=== PATIENT | male | born 1970 | race Caucasian/White ===

== ENCOUNTER 2018-04-04 18:35 | Outpatient (REF) | payer BC, SELFPAY ==
--- NOTE | 2018-04-04 16:45 | SKI_PTH ---
PATIENT: Amos Nolan LOC: [facility] U#:[id number] AGE/SX: 47/M ROOM: RE04/04/[address]: Derrell Song : 1970 BED: DIS: 04/04/2018 SPEC #: [id number] RECD: 04/05/18 12:37 STATUS: MECCA RE #: [id number] MAURICE: 04/04/18 16:[address]: Derrell Song DEPT: Surgical Specimen RECD BY: Constanza Mehta Tissues: 1 - SKIN BIOPSY(SHAVE/PUNCH) Procedures: SKIN LEVEL 4 Comments: [id number]
== END 2018-04-04 18:55 ==
LOC: NCHCN 18:35
PROVIDERS: PCP Family Medicine; Visit Provider Family Medicine
DX: D18.01 Hemangioma of skin and subcutaneous tissue (principal)
CPT/HCPCS: 88305

== ENCOUNTER 2018-07-01 13:42 | Outpatient (REF) | payer BC, SELFPAY | END 2018-07-01 14:02 | LOC: NCHCN 13:42 | PROVIDERS: PCP Family Medicine; Visit Provider Registered Nurse | DX: J02.9 Acute pharyngitis, unspecified (principal) | CPT/HCPCS: 86060; 86215; 87081 ==

== ENCOUNTER 2019-01-22 16:58 | Outpatient (REF) | payer BC, SELFPAY | END 2019-01-22 17:18 | LOC: NCHCN 16:58 | PROVIDERS: PCP Family Medicine; Visit Provider Family Medicine | DX: E11.9 Type 2 diabetes mellitus without complications (principal) | CPT/HCPCS: 82043; 82570 ==

== ENCOUNTER 2019-01-24 09:21 | Outpatient (REF) | payer BC, SELFPAY ==
[2019-01-24 21:08] LABS: Abs Immature Grans 0.01 k/cumm (0.0-0.09); Absolute Basophil Count 0.03 k/cumm (0.0-0.2); Absolute Eosinophil Count 0.12 k/cumm (0.0-0.7); Absolute Lymphocyte Count 1.23 k/cumm (1.2-3.4); Absolute Monocyte Count 0.63 k/cumm (0.11-0.7); Absolute Neutrophil Count 3.56 k/cumm (1.2-6.7); Basophils % 0.5; Eosinophils % 2.2; HCT 42.4 % (40.0-50.0); HGB 14.3 g/dL (13.5-17.5); Immature Grans % 0.2; Mean Corp. HGB Concentration 33.7 g/dL (32.0-36.0); Mean Corpuscular Volume 89.1 fL (80-95); Mean Platelet Volume 11.4 fL (8.0-11.0); Monocytes % 11.3; Neutrophils % 63.8; Platelet Count 200 x1000/uL (130-400); RBC 4.76 m/cumm (4.50-6.00); RBC Distribution Width 13.8 % (11.8-14.1); White Blood Cell Count 5.58 k/cumm (4.4-10.8)
[2019-01-24 21:35] LABS: ALT 62 U/L (12-78); AST 29 U/L (15-37); Albumin 4.2 g/dL (3.4-5.0); Alkaline Phosphatase 89 U/L (46-116); Anion Gap 7.6 mmol/L (3-11); BUN 22 mg/dL (7-18); Bilirubin, Total 0.7 mg/dL (0.2-1.0); CO2 28.4 mmol/L (21.0-32.0); CREATININE 0.88 mg/dL (0.70-1.30); Calculated LDL 96 mg/dL; Chloride 105 mmol/L (98-107); Cholesterol 179 mg/dL (50-200); Glucose 147 mg/dL (70-100); HDL Cholesterol 49 mg/dL (40-60); Magnesium 1.9 mg/dL (1.8-2.4); Potassium 4.4 mmol/L (3.5-5.1); Sodium 141 mmol/L (136-145); TSH (W/Ref FT4) 2.11 uIU/mL (0.358-3.74); Total Protein 7.3 g/dL (6.4-8.2); Triglyceride 173 mg/dL (30-150)
[2019-01-24 21:59] LABS: COMMENT (LAB VIEW ONLY) 134.93 mg/dL; Microalb ug/mg Crea 12.7 ug/mg Cr
[2019-01-24 22:10] LABS: Creatine Kinase 130 U/L (39-308)
[2019-01-27 10:43] LABS: Hepatitis C Ab w Rflx HCV PCR Negative (NEGAT)
== END 2019-01-24 09:41 ==
LOC: NCHCN 09:21
PROVIDERS: PCP Family Medicine; Visit Provider Family Medicine
DX: E11.9 Type 2 diabetes mellitus without complications (principal); E78.1 Pure hyperglyceridemia; E78.5 Hyperlipidemia, unspecified; M79.10 Myalgia, unspecified site; K76.0 Fatty (change of) liver, not elsewhere classified; Z11.59 Encounter for screening for other viral diseases
CPT/HCPCS: 80053; 80061; 82550; 83721; 86803; 82043; 82570; 83735; 84443; 85025

== ENCOUNTER 2022-11-07 15:01 | Outpatient (REF) | payer BC, SELFPAY ==
[2022-11-07 20:56] LABS: COMMENT (LAB VIEW ONLY) 82.41 mg/dL; Microalb ug/mg Crea 49.4 ug/mg Cr
== END 2022-11-07 15:02 | disposition home or self-care (01) ==
LOC: NCHCN 15:01
PROVIDERS: PCP Family Medicine; Visit Provider Family Medicine
DX: E11.9 Type 2 diabetes mellitus without complications (principal)
CPT/HCPCS: 82043; 82570

== ENCOUNTER 2022-11-15 15:49 | Outpatient (REF) | payer BC, SELFPAY ==
[2022-11-15 16:42] LABS: Hemoglobin A1C 7.1 % (<5.7)
[2022-11-15 17:33] LABS: ALT 74 U/L (16-63); AST 29 U/L (15-37); Albumin 4.5 g/dL (3.4-5.0); Alkaline Phosphatase 81 U/L (46-116); Anion Gap 7.5 mmol/L (3-11); BUN 22 mg/dL (7-18); Bilirubin, Total 0.6 mg/dL (0.2-1.0); CO2 28.5 mmol/L (21.0-32.0); Calcium 9.3 mg/dL (8.5-10.1); Calculated LDL 205 mg/dL (<100); Chloride 104 mmol/L (98-107); Cholesterol 298 mg/dL (<200); Glucose 154 mg/dL (74-106); HDL Cholesterol 60 mg/dL (40-60); Potassium 4.4 mmol/L (3.5-5.1); Sodium 140 mmol/L (136-145); Triglyceride 167 mg/dL (<150)
[2022-11-16 21:12] LABS: PSA, Screening 0.2 ng/mL (<=3.5)
== END 2022-11-15 15:50 | disposition home or self-care (01) ==
LOC: NCHCN 15:49
PROVIDERS: PCP Family Medicine; Visit Provider Family Medicine
DX: E78.5 Hyperlipidemia, unspecified (principal); E11.9 Type 2 diabetes mellitus without complications; N18.9 Chronic kidney disease, unspecified; K76.0 Fatty (change of) liver, not elsewhere classified; R35.0 Frequency of micturition; Z12.5 Encounter for screening for malignant neoplasm of prostate
CPT/HCPCS: 80053; 80061; 84153; 83036

== ENCOUNTER 2023-07-10 15:41 | Outpatient (REF) | payer BC, SELFPAY ==
--- OUTSIDE RECORDS SUMMARY | 2023-07-10 15:44 | XMS_ITS | CCD ---
Author Name Unknown Address [address] [place] [address] [id number] Organization Unknown Address [address] [place] [address] [id number] Care Team Providers Care Lot Associate Name Role Phone BERTRAM PATEL Attending Physician [phone] BERTRAM PATEL Rounding (Secondary) Physici an [phone] Vital Signs Unknown or Not Available. Allergies Allergy Code Allergy Type Reaction Status No Known Allergies 0 No known allergies Active Procedures Unknown or Not Available. History of Immunizations Unknown or Not Available. Problems Problem Code Start Date Resolved Date Status Sprain of thoracic region 212190130 Active Diabetes 2 77408889 Active Results Unknown or Not Available. Active Medications Medication Code Dose Units Frequency Route Modificatio n Start Date/Time Fish Oil 1000MG Oral Capsule, Liquid Filled 32949491155 1000 MILLIGRAMS DAILY ORAL 14:22 Prescription Detail TAKE 1000 MILLIGRAMS ORAL DAILY Januvia 100MG Oral Tablet 337569 100 MILLIGRAMS DAILY ORAL 14:22 Prescription Detail TAKE 100 MILLIGRAMS ORAL DAILY Jardiance 10MG Oral Tablet 1296525 10 MILLIGRAMS DAILY ORAL 14:22 Prescription Detail TAKE 10 MILLIGRAMS ORAL DAILY Lisinopril 5MG Oral Tablet 789936 5 MILLIGRAMS DAILY ORAL 14:22 Prescription Detail TAKE 5 MILLIGRAMS ORAL DAILY Multi-Day Oral Tablet 59913943471 1 EACH DAILY ORAL 06/16/20 14:22 Prescription Detail TAKE 1 EACH ORAL DAILY Medications Administered During Visit Unknown or Not Available. Encounters Encounter Diagnosis Diagnosis Code Start Date Follow-up visit [id number] 06/28/2022 Social History Smoking Status Code Start Date End Date Never smoker [id number] Patient Decision Aids Unknown or Not Available. Discharge Instructions You were admitted to [facility] on 06/28/2022 09:30 with a principal diagnosis of Encounter for follow-up examination after completed treatment for conditions other than malignant neoplasm You were discharged from [facility] on 06/28/2022 00:00 Should you have any questions prior to discharge, please contact a member of your healthcare team. If you have left the hospital and have any questions, please contact your primary care physician. Chief Complaint and Reason For Visit Unknown or Not Available. Function Status Unknown or Not Available. Plan of Care Unknown or Not Available. Referral/Transition of Care Unknown or Not Available.
--- OUTSIDE RECORDS SUMMARY | 2023-07-10 15:44 | XMS_ITS | CCD ---
Author Name Unknown Address [address] [place] [address] [phone] Organization Unknown Address [address] [place] [address] [phone] Care Team Providers Care Vice Provost Name Role Phone BERTRAM PATEL Luz Attending Physician [phone] Vital Signs Unknown or Not Available. Allergies Allergy Code Allergy Type Reaction Status No Known Allergies 0 No known allergies Active Procedures Unknown or Not Available. History of Immunizations Unknown or Not Available. Problems Problem Code Start Date Resolved Date Status Sprain of thoracic region 714926796 Active Diabetes 2 49336188 Active Results Unknown or Not Available. Active Medications Medication Code Dose Units Frequency Route Modificatio n Start Date/Time Fish Oil 1000MG Oral Capsule, Liquid Filled 88202627663 1000 MILLIGRAMS DAILY ORAL 14:22 Prescription Detail TAKE 1000 MILLIGRAMS ORAL DAILY Januvia 100MG Oral Tablet 674569 100 MILLIGRAMS DAILY ORAL 14:22 Prescription Detail TAKE 100 MILLIGRAMS ORAL DAILY Jardiance 10MG Oral Tablet 3275661 10 MILLIGRAMS DAILY ORAL 14:22 Prescription Detail TAKE 10 MILLIGRAMS ORAL DAILY Lisinopril 5MG Oral Tablet 507489 5 MILLIGRAMS DAILY ORAL 14:22 Prescription Detail TAKE 5 MILLIGRAMS ORAL DAILY Multi-Day Oral Tablet 33284022743 1 EACH DAILY ORAL 06/16/20 14:22 Prescription Detail TAKE 1 EACH ORAL DAILY Medications Administered During Visit Unknown or Not Available. Encounters Encounter Diagnosis Diagnosis Code Start Date Acute appendicitis with perf oration, localized peritonitis, and gangrene, without abscess [id number] 06/09/2022 Social History Smoking Status Code Start Date End Date Never smoker 810820838 Patient Decision Aids Unknown or Not Available. Discharge Instructions You were admitted to [facility] on 06/09/2022 12:04 with a principal diagnosis of Acute appendicitis with perforation, localized peritonitis, and gangrene, without abscess You were discharged from [facility] on 06/16/2022 00:00 Should you have any questions prior [...]
--- OUTSIDE RECORDS SUMMARY | 2023-07-10 15:44 | XMS_ITS | CCD ---
Author Name Unknown Address [address] [place] [address] [id number] Organization Unknown Address [address] [place] [address] [phone] Care Team Providers Care Fermenting Cellars Supervisor Name Role Phone BRANDIE OWUSU Attending Physician [phone] Vital Signs Unknown or Not Available. Allergies Allergy Code Allergy Type Reaction Status No Known Allergies 0 No known allergies Active Procedures Unknown or Not Available. History of Immunizations Unknown or Not Available. Problems Problem Code Start Date Resolved Date Status Sprain of thoracic region 726243862 Active Diabetes 2 34746312 Active Results AMYLASE SERUM* - Collect Jose e/Time: 08/03/2022 08:54 Test Name Code Test Result Test Units Test Ref Rang e AMYLASE SERUM 1798-8 88 U/L L=25 H=125 COMPREHENSIVE METABOLIC PANE L (CMP) - Collect Date/Time: 08/03/2022 08:54 Test Name Code Test Result Test Units Test Ref Rang e GLUCOSE 2345-7 204 mg/dL L=70 H=116 BUN 3094-0 19 mg/dL L=6 H=25 CREATININE 2160-0 0.99 mg/dL L=0.67 H=1.17 SODIUM SERUM 2951-2 140 mmol/L L=136 H=145 POTASSIUM SERUM 2823-3 4.4 mmol/L L=3.4 H=5 .2 CHLORIDE SERUM 2075-0 103 mmol/L L=96 H=110 CARBON DIOXIDE (CO2) 2028-9 27 mmol/L L=22 H=34 ANION GAP 07031-3 10.1 mmol/L CALCIUM SERUM 99555-2 9.5 mg/dL L=8.2 H=10. 2 BILIRUBIN TOTAL 1975-2 0.5 mg/dL L=0.0 H=1 .3 ALK. PHOS. 6768-6 82 U/L L=46 H=116 SGOT (AST) 1920-8 29 U/L L=15 H=37 SGPT (ALT) 1742-6 71 U/L L=12 H=78 TOTAL PROTEIN 2885-2 8.2 gm/dL L=6.0 H=8.0 ALBUMIN 1751-7 4.3 gm/dL L=3.4 H=5.0 AGE 51 years eGFR (non-Afr.Amer.) 18164-2 79 mL/min eGFR (Afr-Ghanaian) 22826-4 96 mL/min HEMOGLOBIN A1C* - Collect Da te/Time: 08/03/2022 08:54 Test Name Code Test Result Test Units Test Ref Rang e Hgb A1c 4548-4 6.6 % L=3.8 H=5.7 MEAN BLOOD GLUCOSE 85234-8 134 mg/dL LIPASE* NEW - Collect Date/T herman: 08/03/2022 08:54 Test Name Code Test Result Test Units Test Ref Rang e LIPASE. 96 U/L L=16 H=77 CBC W/ DIFFERENTIAL* - Colle ct Date/Time: 08/03/2022 08:54 Test Name Code Test Result Test Units Test Ref Rang e WBC 6690-2 5.60 th/cmm L=5.00 H=10.00 NEUT % 59.2 % L=40.0 H=80.0 LYMPH % 27.5 % L=10.0 H=50.0 MONO % 58984-0 9.1 % L=2.0 H=12.0 EOS % 2.9 % L=0.0 H=8.0 BASO % 0.9 % L=0.0 H=3.0 IG % 2514-8 0.4 % L=0.0 H=1.1 NRBC % 73131-9 0.0 % L=0.0 H=0.0 NEUT abs count 751-8 3.3 th/cmm L=1.6 H=8. 4 LYMPH abs count 731-0 1.5 th/cmm L=1.5 H=4 .0 MONO abs count 742-7 0.5 th/cmm L=0.2 H=1. 0 EOS abs count 711-2 0.2 th/cmm L=0.0 H=0.5 BASO abs count 704-7 0.1 th/cmm L=0.0 H=0. 2 IG abs count 24906-5 0.0 th/cmm L=0.0 H=0.1 NRBC abs count 70575-3 0.0 mil/cmm L=0.0 H=0. 0 RBC 789-8 5.01 mil/cmm L=4.30 H=6.20 HEMOGLOBIN 718-7 15.2 gm/dL L=13.0 H=17.0 HEMATOCRIT 4544-3 46 % L=45 H=52 MCV 787-2 92 fL L=82 H=92 MCH 785-6 30.3 pg L=27.0 H=31.0 MCHC 786-4 33.0 % L=32.0 H=36.0 RDW-SD 788-0 45.6 fL L=39.0 H=49.0 PLATELET COUNT 777-3 213 th/cmm L=150 H=45 0 Active Medications Medication Code Dose Units Frequency Route Modificatio n Start Date/Time Fish Oil 1000MG Oral Capsule, Liquid Filled 50653730972 1000 MILLIGRAMS DAILY ORAL 14:22 Prescription Detail TAKE 1000 MILLIGRAMS ORAL DAILY Januvia 100MG Oral Tablet 910211 100 MILLIGRAMS DAILY ORAL 14:22 Prescription Detail TAKE 100 MILLIGRAMS ORAL DAILY Jardiance 10MG Oral Tablet 2963618 10 MILLIGRAMS DAILY ORAL 14:22 Prescription Detail TAKE 10 MILLIGRAMS ORAL DAILY Lisinopril 5MG Oral Tablet 244263 5 MILLIGRAMS DAILY ORAL 14:22 Prescription Detail TAKE 5 MILLIGRAMS ORAL DAILY Multi-Day Oral Tablet 60437804754 1 EACH DAILY ORAL 06/16/20 14:22 Prescription Detail TAKE 1 EACH ORAL DAILY Medications Administered During Visit Unknown or Not Available. Encounters Encounter Diagnosis Diagnosis Code Start Date Acute pancreatitis 248452328 08/03/2022 Social History Smoking Status Code Start Date End Date Never smoker 205920487 Patient Decision Aids Unknown or Not Available. Discharge Instructions You were admitted to [facility] on 08/03/2022 08:47 with a principal diagnosis of Acute pancreatitis without necrosis or infection, unspecified You had the following tests done:AMYLASE SERUM*CBC W/ DIFFERENTIAL*COMPREHENSIVE METABOLIC PANEL (CMP)HEMOGLOBIN A1C*LIPASE* NEW You were discharged from [facility] on 08/03/2022 08:47 Should you have any questions prior to [...]
--- OUTSIDE RECORDS SUMMARY | 2023-07-10 15:45 | XMS_ITS | CCD ---
Author Name Unknown Address [address] [place] [address] [phone] Organization Unknown Address [address] [place] [address] [phone] Care Team Providers Care Literacy Coordinator Name Role Phone MINH ROACH Attending Physician [phone] Vital Signs Unknown or Not Available. Allergies Allergy Code Allergy Type Reaction Status No Known Allergies 0 No known allergies Active Procedures Unknown or Not Available. History of Immunizations Unknown or Not Available. Problems Problem Code Start Date Resolved Date Status Sprain of thoracic region 229269095 Active Diabetes 2 21278020 Active Results JOHN COVID RHEONIX* - Anatoly ect Date/Time: 12/28/2021 09:53 Test Name Code Test Result Test Units Test Ref Rang e Tier- 38332-3 PRE-OP N/A SARS COV2 RNA: 46610-1 NEGATIVE N/A REFERENCE RANGE: NEGAT Active Medications Medication Code Dose Units Frequency Route Modificatio n Start Date/Time Fish Oil 1000MG Oral Capsule, Liquid Filled 49902949701 1000 MILLIGRAMS DAILY ORAL 14:22 Prescription Detail TAKE 1000 MILLIGRAMS ORAL DAILY Januvia 100MG Oral Tablet 656157 100 MILLIGRAMS DAILY ORAL 022 14:22 Prescription Detail TAKE 100 MILLIGRAMS ORAL DAILY Jardiance 10MG Oral Tablet 7215021 10 MILLIGRAMS DAILY ORAL 14:22 Prescription Detail TAKE 10 MILLIGRAMS ORAL DAILY Lisinopril 5MG Oral Tablet 017399 5 MILLIGRAMS DAILY ORAL 14:22 Prescription Detail TAKE 5 MILLIGRAMS ORAL DAILY Multi-Day Oral Tablet 98813962796 1 EACH DAILY ORAL 06/16/20 14:22 Prescription Detail TAKE 1 EACH ORAL DAILY Medications Administered During Visit Unknown or Not Available. Encounters Encounter Diagnosis Diagnosis Code Start Date Pre-surgery testing 459227990 12/28/2021 Social History Smoking Status Code Start Date End Date Never smoker 496294846 Patient Decision Aids Unknown or Not Available. Discharge Instructions You were admitted to [facility] on 12/28/2021 15:56 with a principal diagnosis of Encounter for preprocedural laboratory examination You had the following tests done:JOHNYIMI BANKSX* You were discharged from [facility] on 12/28/2021 15:56 Should you have any questions prior to [...]
--- OUTSIDE RECORDS SUMMARY | 2023-07-10 15:45 | XMS_ITS | CCD ---
Author Name Unknown Address [address] [place] [address] [phone] Organization Unknown Address [address] [place] [address] [phone] Care Team Providers Care Pest Control Service Representative Name Role Phone MINH ROACH Attending Physician [phone] Vital Signs Unknown or Not Available. Allergies Allergy Code Allergy Type Reaction Status No Known Allergies 0 No known allergies Active Procedures Unknown or Not Available. History of Immunizations Unknown or Not Available. Problems Problem Code Start Date Resolved Date Status Sprain of thoracic region 364615140 Active Diabetes 2 71580710 Active Results JOHN COVID RHEONIX* - Anatoly ect Date/Time: 05/03/2022 09:44 Test Name Code Test Result Test Units Test Ref Rang e Tier- 73688-1 PRE-OP N/A SARS COV2 RNA: 93480-0 NEGATIVE N/A REFERENCE RANGE: NEGAT Active Medications Medication Code Dose Units Frequency Route Modificatio n Start Date/Time Fish Oil 1000MG Oral Capsule, Liquid Filled 87587066176 1000 MILLIGRAMS DAILY ORAL 14:22 Prescription Detail TAKE 1000 MILLIGRAMS ORAL DAILY Januvia 100MG Oral Tablet 568292 100 MILLIGRAMS DAILY ORAL 022 14:22 Prescription Detail TAKE 100 MILLIGRAMS ORAL DAILY Jardiance 10MG Oral Tablet 0690429 10 MILLIGRAMS DAILY ORAL 14:22 Prescription Detail TAKE 10 MILLIGRAMS ORAL DAILY Lisinopril 5MG Oral Tablet 895292 5 MILLIGRAMS DAILY ORAL 14:22 Prescription Detail TAKE 5 MILLIGRAMS ORAL DAILY Multi-Day Oral Tablet 98820583720 1 EACH DAILY ORAL 06/16/20 14:22 Prescription Detail TAKE 1 EACH ORAL DAILY Medications Administered During Visit Unknown or Not Available. Encounters Encounter Diagnosis Diagnosis Code Start Date Pre-surgery testing 670505095 05/03/2022 Social History Smoking Status Code Start Date End Date Never smoker 164389198 Patient Decision Aids Unknown or Not Available. Discharge Instructions You were admitted to [facility] on 05/03/2022 07:44 with a principal diagnosis of Encounter for preprocedural laboratory examination You had the following tests done:JOHNYIMI SALES* You were discharged from [facility] on 05/03/2022 07:44 Should you have any questions prior to [...]
--- OUTSIDE RECORDS SUMMARY | 2023-07-10 15:45 | XMS_ITS | CCD ---
Author Name Unknown Address [address] [place] [address] [phone] Organization Unknown Address [address] [place] [address] [phone] Care Team Providers Care Stone Gang Sawyer Name Role Phone MILKA TAPIA Attending Physician [phone] SERGIO CUI Er Physician [phone] SERGIO CUI Roundmartha (Secondary) Physician [phone] BERRY Monreal Registered Nurse [phone] ARIEL Wilcox Registered Nurse [phone] Vital Signs Vital Sign Value Unit Date/Time Recent/Initial ? BMI (Body Mass Index) 29.7 kg/m^2 06/08/2022 16: 56 Initial VS Weight Measured 207 lbs 06/08/2022 16:56 Ini tial VS Height 70 in 06/08/2022 16:56 Initial VS BSA (Body Surface Area) 2.15 m^2 06/08/2022 1 6:56 Initial VS BP Systolic 144 mmHg 06/08/2022 16:56 Initial VS BP Diastolic 90 mmHg 06/08/2022 16:56 Initia l VS Respiratory Rate 16 bpm 06/08/2022 16:56 In itial VS Heart Rate 70 bpm 06/08/2022 16:56 Initial VS O2 % BldC Oximetry 97 % 06/08/2022 16:56 Initial VS Body Temperature 37.2 degrees 06/08/2022 16:56 In itial VS BMI (Body Mass Index) 29.84 kg/m^2 06/14/2022 16: 22 Most Recent VS Weight Measured 208 lbs 06/14/2022 16:22 Mos t Recent VS Height 70 in 06/14/2022 16:22 Most Rec ent VS BSA (Body Surface Area) 2.16 m^2 06/14/2022 1 6:22 Most Recent VS BP Systolic 132 mmHg 06/16/2022 07:40 Most Re cent VS BP Diastolic 74 mmHg 06/16/2022 07:40 Most R ecent VS Respiratory Rate 19 bpm 06/16/2022 07:[address] Recent VS Heart Rate 49 bpm 06/16/2022 07:40 Most Rec ent VS O2 % BldC Oximetry 98 % 06/16/2022 07:40 Most Recent VS Body Temperature 36.9 degrees 06/16/2022 07:[address] Recent VS Allergies Allergy Code Allergy Type Reaction Status No Known Allergies 0 No known allergies Active Procedures Procedure Code Procedure Type Date Resection of Appendix, Percu taneous Endoscopic Approach [id number] ICD-10 PCS 06/12/2022 Anesthesia, Intraperitoneal Proc, Lower Abdomen, w/Laparoscopy; NOS 92521 CPT 06/12/2022 History of Immunizations Unknown or Not Available. Problems Problem Code Start Date Resolved Date Status Sprain of thoracic region [id number] Active Diabetes 2 [id number] Active Results BASIC METABOLIC PANEL (BMP) - Collect Date/Time: 06/15/2022 07:02 Test Name Code Test Result Test Units Test Ref Rang e GLUCOSE 2345-7 162 mg/dL L=70 H=116 BUN 3094-0 13 mg/dL L=6 H=25 CREATININE 2160-0 0.78 mg/dL L=0.67 H=1.17 SODIUM SERUM 2951-2 140 mmol/L L=136 H=145 POTASSIUM SERUM 2823-3 3.9 mmol/L L=3.4 H=5 .2 CHLORIDE SERUM 2075-0 104 mmol/L L=96 H=110 CARBON DIOXIDE (CO2) 2028-9 28 mmol/L L=22 H=34 ANION GAP 56434-7 8.3 mmol/L CALCIUM SERUM 17028-0 8.3 mg/dL L=8.2 H=10. 2 AGE 51 years eGFR (non-Afr.Amer.) 34672-6 104 mL/min eGFR (Afr-Yemeni) 77144-7 >120 mL/min BASIC METABOLIC PANEL (BMP) - Collect Date/Time: 06/13/2022 06:36 Test Name Code Test Result Test Units Test Ref Rang e GLUCOSE 2345-7 168 mg/dL L=70 H=116 BUN 3094-0 16 mg/dL L=6 H=25 CREATININE 2160-0 0.85 mg/dL L=0.67 H=1.17 SODIUM SERUM 2951-2 138 mmol/L L=136 H=145 POTASSIUM SERUM 2823-3 4.0 mmol/L L=3.4 H=5 .2 CHLORIDE SERUM 2075-0 101 mmol/L L=96 H=110 CARBON DIOXIDE (CO2) 2028-9 31 mmol/L L=22 H=34 ANION GAP 89972-0 6.5 mmol/L CALCIUM SERUM 79999-4 8.3 mg/dL L=8.2 H=10. 2 AGE 51 years eGFR (non-Afr.Amer.) 22491-9 94 mL/min eGFR (Afr-Yemeni) 28712-4 114 mL/min BASIC METABOLIC PANEL (BMP) - Collect Date/Time: 06/12/2022 06:25 Test Name Code Test Result Test Units Test Ref Rang e GLUCOSE 2345-7 158 mg/dL L=70 H=116 BUN 3094-0 17 mg/dL L=6 H=25 CREATININE 2160-0 0.82 mg/dL L=0.67 H=1.17 SODIUM SERUM 2951-2 138 mmol/L L=136 H=145 POTASSIUM SERUM 2823-3 3.7 mmol/L L=3.4 H=5 .2 CHLORIDE SERUM 2075-0 103 mmol/L L=96 H=110 CARBON DIOXIDE (CO2) 2028-9 27 mmol/L L=22 H=34 ANION GAP 37139-3 8.3 mmol/L CALCIUM SERUM 98453-4 8.3 mg/dL L=8.2 H=10. 2 AGE 51 years eGFR (non-Afr.Amer.) 79352-7 98 mL/min eGFR (Afr-Y[place]i) 88474-4 119 mL/min BASIC METABOLIC PANEL (BMP) - Collect Date/Time: 06/10/2022 06:25 Test Name Code Test Result Test Units Test Ref Rang e GLUCOSE 2345-7 144 mg/dL L=70 H=116 BUN 3094-0 16 mg/dL L=6 H=25 CREATININE 2160-0 0.81 mg/dL L=0.67 H=1.17 SODIUM SERUM 2951-2 131 mmol/L L=136 H=145 POTASSIUM SERUM 2823-3 3.6 mmol/L L=3.4 H=5 .2 CHLORIDE SERUM 2075-0 99 mmol/L L=96 H=110 CARBON DIOXIDE (CO2) 2028-9 26 mmol/L L=22 H=34 ANION GAP 01991-0 5.8 mmol/L CALCIUM SERUM 56721-6 8.1 mg/dL L=8.2 H=10. 2 AGE 51 years eGFR (non-Afr.Amer.) 91600-6 100 mL/min eGFR (Afr-[place]i) 62529-4 >120 mL/min BASIC METABOLIC PANEL (BMP) - Collect Date/Time: 06/09/2022 06:11 Test Name Code Test Result Test Units Test Ref Rang e GLUCOSE 2345-7 173 mg/dL L=70 H=116 BUN 3094-0 15 mg/dL L=6 H=25 CREATININE 2160-0 0.96 mg/dL L=0.67 H=1.17 SODIUM SERUM 2951-2 133 mmol/L L=136 H=145 POTASSIUM SERUM 2823-3 3.8 mmol/L L=3.4 H=5 .2 CHLORIDE SERUM 2075-0 98 mmol/L L=96 H=110 CARBON DIOXIDE (CO2) 2028-9 28 mmol/L L=22 H=34 ANION GAP 64231-6 7.1 mmol/L CALCIUM SERUM 79687-6 8.2 mg/dL L=8.2 H=10. 2 AGE 51 years eGFR (non-Afr.Amer.) 61799-3 82 mL/min eGFR (Afr-Y[place]i) 35071-1 99 mL/min COMPREHENSIVE METABOLIC PANE L (CMP) - Collect Date/Time: 06/08/2022 17:33 Test Name Code Test Result Test Units Test Ref Rang e GLUCOSE 2345-7 122 mg/dL L=70 H=116 BUN 3094-0 19 mg/dL L=6 H=25 CREATININE 2160-0 1.04 mg/dL L=0.67 H=1.17 SODIUM SERUM 2951-2 134 mmol/L L=136 H=145 POTASSIUM SERUM 2823-3 3.8 mmol/L L=3.4 H=5 .2 CHLORIDE SERUM 2075-0 98 mmol/L L=96 H=110 CARBON DIOXIDE (CO2) 2028-9 29 mmol/L L=22 H=34 ANION GAP 83855-2 6.7 mmol/L CALCIUM SERUM 05665-1 9.0 mg/dL L=8.2 H=10. 2 BILIRUBIN TOTAL 1975-2 0.6 mg/dL L=0.0 H=1 .3 ALK. PHOS. 6768-6 73 U/L L=46 H=116 SGOT (AST) 1920-8 32 U/L L=15 H=37 SGPT (ALT) 1742-6 71 U/L L=12 H=78 TOTAL PROTEIN 2885-2 7.7 gm/dL L=6.0 H=8.0 ALBUMIN 1751-7 4.4 gm/dL L=3.4 H=5.0 AGE 51 years eGFR (non-Afr.Amer.) 70986-0 75 mL/min eGFR (Afr-Y[place]i) 50589-2 90 mL/min GLUCOSE FINGER/HEEL CAPILLAR Y - Collect Date/Time: 06/16/2022 07:49 Test Name Code Test Result Test Units Test Ref Rang e GLUCOSE CAP 142 mg/dL L=70 H=116 GLUCOSE FINGER/HEEL CAPILLAR Y - Collect Date/Time: 06/15/2022 20:24 Test Name Code Test Result Test Units Test Ref Rang e GLUCOSE CAP 159 mg/dL L=70 H=116 GLUCOSE FINGER/HEEL CAPILLAR Y - Collect Date/Time: 06/15/2022 16:57 Test Name Code Test Result Test Units Test Ref Rang e GLUCOSE CAP 147 mg/dL L=70 H=116 GLUCOSE FINGER/HEEL CAPILLAR Y - Collect Date/Time: 06/15/2022 11:34 Test Name Code Test Result Test Units Test Ref Rang e GLUCOSE CAP 153 mg/dL L=70 H=116 GLUCOSE FINGER/HEEL CAPILLAR Y - Collect Date/Time: 06/15/2022 07:42 Test Name Code Test Result Test Units Test Ref Rang e GLUCOSE CAP 168 mg/dL L=70 H=116 GLUCOSE FINGER/HEEL CAPILLAR Y - Collect Date/Time: 06/14/2022 20:44 Test Name Code Test Result Test Units Test Ref Rang e GLUCOSE CAP 152 mg/dL L=70 H=116 GLUCOSE FINGER/HEEL CAPILLAR Y - Collect Date/Time: 06/14/2022 16:32 Test Name Code Test Result Test Units Test Ref Rang e GLUCOSE CAP 144 mg/dL L=70 H=116 GLUCOSE FINGER/HEEL CAPILLAR Y - Collect Date/Time: 06/14/2022 11:48 Test Name Code Test Result Test Units Test Ref Rang e GLUCOSE CAP 154 mg/dL L=70 H=116 GLUCOSE FINGER/HEEL CAPILLAR Y - Collect Date/Time: 06/14/2022 07:49 Test Name Code Test Result Test Units Test Ref Rang e GLUCOSE CAP 175 mg/dL L=70 H=116 GLUCOSE FINGER/HEEL CAPILLAR Y - Collect Date/Time: 06/13/2022 20:56 Test Name Code Test Result Test Units Test Ref Rang e GLUCOSE CAP 156 mg/dL L=70 H=116 GLUCOSE FINGER/HEEL CAPILLAR Y - Collect Date/Time: 06/13/2022 16:48 Test Name Code Test Result Test Units Test Ref Rang e GLUCOSE CAP 130 mg/dL L=70 H=116 GLUCOSE FINGER/HEEL CAPILLAR Y - Collect Date/Time: 06/13/2022 12:01 Test Name Code Test Result Test Units Test Ref Rang e GLUCOSE CAP 151 mg/dL L=70 H=116 GLUCOSE FINGER/HEEL CAPILLAR Y - Collect Date/Time: 06/13/2022 08:13 Test Name Code Test Result Test Units Test Ref Rang e GLUCOSE CAP 161 mg/dL L=70 H=116 GLUCOSE FINGER/HEEL CAPILLAR Y - Collect Date/Time: 06/12/2022 20:35 Test Name Code Test Result Test Units Test Ref Rang e GLUCOSE CAP 163 mg/dL L=70 H=116 GLUCOSE FINGER/HEEL CAPILLAR Y - Collect Date/Time: 06/12/2022 16:48 Test Name Code Test Result Test Units Test Ref Rang e GLUCOSE CAP 155 mg/dL L=70 H=116 GLUCOSE FINGER/HEEL CAPILLAR Y - Collect Date/Time: 06/12/2022 15:25 Test Name Code Test Result Test Units Test Ref Rang e GLUCOSE CAP 164 mg/dL L=70 H=116 GLUCOSE FINGER/HEEL CAPILLAR Y - Collect Date/Time: 06/12/2022 11:45 Test Name Code Test Result Test Units Test Ref Rang e GLUCOSE CAP 284 mg/dL L=70 H=116 GLUCOSE FINGER/HEEL CAPILLAR Y - Collect Date/Time: 06/12/2022 07:52 Test Name Code Test Result Test Units Test Ref Rang e GLUCOSE CAP 162 mg/dL L=70 H=116 GLUCOSE FINGER/HEEL CAPILLAR Y - Collect Date/Time: 06/11/2022 20:53 Test Name Code Test Result Test Units Test Ref Rang e GLUCOSE CAP 145 mg/dL L=70 H=116 GLUCOSE FINGER/HEEL CAPILLAR Y - Collect Date/Time: 06/11/2022 16:51 Test Name Code Test Result Test Units Test Ref Rang e GLUCOSE CAP 144 mg/dL L=70 H=116 GLUCOSE FINGER/HEEL CAPILLAR Y - Collect Date/Time: 06/11/2022 11:49 Test Name Code Test Result Test Units Test Ref Rang e GLUCOSE CAP 153 mg/dL L=70 H=116 GLUCOSE FINGER/HEEL CAPILLAR Y - Collect Date/Time: 06/11/2022 07:23 Test Name Code Test Result Test Units Test Ref Rang e GLUCOSE CAP 140 mg/dL L=70 H=116 GLUCOSE FINGER/HEEL CAPILLAR Y - Collect Date/Time: 06/10/2022 20:26 Test Name Code Test Result Test Units Test Ref Rang e GLUCOSE CAP 147 mg/dL L=70 H=116 GLUCOSE FINGER/HEEL CAPILLAR Y - Collect Date/Time: 06/10/2022 16:32 Test Name Code Test Result Test Units Test Ref Rang e GLUCOSE CAP 182 mg/dL L=70 H=116 GLUCOSE FINGER/HEEL CAPILLAR Y - Collect Date/Time: 06/10/2022 11:29 Test Name Code Test Result Test Units Test Ref Rang e GLUCOSE CAP 146 mg/dL L=70 H=116 GLUCOSE FINGER/HEEL CAPILLAR Y - Collect Date/Time: 06/10/2022 07:50 Test Name Code Test Result Test Units Test Ref Rang e GLUCOSE CAP 143 mg/dL L=70 H=116 GLUCOSE FINGER/HEEL CAPILLAR Y - Collect Date/Time: 06/09/2022 20:53 Test Name Code Test Result Test Units Test Ref Rang e GLUCOSE CAP 198 mg/dL L=70 H=116 GLUCOSE FINGER/HEEL CAPILLAR Y - Collect Date/Time: 06/09/2022 16:13 Test Name Code Test Result Test Units Test Ref Rang e GLUCOSE CAP 187 mg/dL L=70 H=116 GLUCOSE FINGER/HEEL CAPILLAR Y - Collect Date/Time: 06/09/2022 09:58 Test Name Code Test Result Test Units Test Ref Rang e GLUCOSE CAP 161 mg/dL L=70 H=116 GLUCOSE FINGER/HEEL CAPILLAR Y - Collect Date/Time: 06/09/2022 07:48 Test Name Code Test Result Test Units Test Ref Rang e GLUCOSE CAP 147 mg/dL L=70 H=116 GLUCOSE FINGER/HEEL CAPILLAR Y - Collect Date/Time: 06/09/2022 06:35 Test Name Code Test Result Test Units Test Ref Rang e GLUCOSE CAP 174 mg/dL L=70 H=116 LIPASE* NEW - Collect Date/T herman: 06/08/2022 17:33 Test Name Code Test Result Test Units Test Ref Rang e LIPASE. 199 U/L L=16 H=77 CBC W/ DIFFERENTIAL* - Colle ct Date/Time: 06/16/2022 06:39 Test Name Code Test Result Test Units Test Ref Rang e WBC 6690-2 10.33 th/cmm L=5.00 H=10.00 NEUT % 68.0 % L=40.0 H=80.0 LYMPH % 16.3 % L=10.0 H=50.0 MONO % 55540-1 10.2 % L=2.0 H=12.0 EOS % 0.7 % L=0.0 H=8.0 BASO % 1.0 % L=0.0 H=3.0 IG % 2514-8 3.8 % L=0.0 H=1.1 NRBC % 76295-9 0.0 % L=0.0 H=0.0 NEUT abs count 751-8 7.0 th/cmm L=1.6 H=8. 4 LYMPH abs count 731-0 1.7 th/cmm L=1.5 H=4 .0 MONO abs count 742-7 1.1 th/cmm L=0.2 H=1. 0 EOS abs count 711-2 0.1 th/cmm L=0.0 H=0.5 BASO abs count 704-7 0.1 th/cmm L=0.0 H=0. 2 IG abs count 42663-6 0.4 th/cmm L=0.0 H=0.1 NRBC abs count 91642-2 0.0 mil/cmm L=0.0 H=0. 0 RBC 789-8 4.51 mil/cmm L=4.30 H=6.20 HEMOGLOBIN 718-7 13.5 gm/dL L=13.0 H=17.0 HEMATOCRIT 4544-3 41 % L=45 H=52 MCV 787-2 90 fL L=82 H=92 MCH 785-6 29.9 pg L=27.0 H=31.0 MCHC 786-4 33.3 % L=32.0 H=36.0 RDW-SD 788-0 44.5 fL L=39.0 H=49.0 PLATELET COUNT 777-3 307 th/cmm L=150 H=45 0 CBC W/ DIFFERENTIAL* - Colle ct Date/Time: 06/15/2022 07:02 Test Name Code Test Result Test Units Test Ref Rang e WBC 6690-2 10.59 th/cmm L=5.00 H=10.00 NEUT % 73.4 % L=40.0 H=80.0 LYMPH % 13.6 % L=10.0 H=50.0 MONO % 78124-2 9.4 % L=2.0 H=12.0 EOS % 0.9 % L=0.0 H=8.0 BASO % 0.8 % L=0.0 H=3.0 IG % 2514-8 1.9 % L=0.0 H=1.1 NRBC % 14238-6 0.0 % L=0.0 H=0.0 NEUT abs count 751-8 7.8 th/cmm L=1.6 H=8. 4 LYMPH abs count 731-0 1.4 th/cmm L=1.5 H=4 .0 MONO abs count 742-7 1.0 th/cmm L=0.2 H=1. 0 EOS abs count 711-2 0.1 th/cmm L=0.0 H=0.5 BASO abs count 704-7 0.1 th/cmm L=0.0 H=0. 2 IG abs count 57757-6 0.2 th/cmm L=0.0 H=0.1 NRBC abs count 93529-3 0.0 mil/cmm L=0.0 H=0. 0 RBC 789-8 4.35 mil/cmm L=4.30 H=6.20 HEMOGLOBIN 718-7 12.8 gm/dL L=13.0 H=17.0 HEMATOCRIT 4544-3 39 % L=45 H=52 MCV 787-2 90 fL L=82 H=92 MCH 785-6 29.4 pg L=27.0 H=31.0 MCHC 786-4 32.6 % L=32.0 H=36.0 RDW-SD 788-0 44.2 fL L=39.0 H=49.0 PLATELET COUNT 777-3 278 th/cmm L=150 H=45 0 CBC W/ DIFFERENTIAL* - Colle ct Date/Time: 06/14/2022 07:35 Test Name Code Test Result Test Units Test Ref Rang e WBC 6690-2 12.94 th/cmm L=5.00 H=10.00 NEUT % 81.4 % L=40.0 H=80.0 LYMPH % 7.9 % L=10.0 H=50.0 MONO % 88804-3 7.5 % L=2.0 H=12.0 EOS % 0.6 % L=0.0 H=8.0 BASO % 0.7 % L=0.0 H=3.0 IG % 2514-8 1.9 % L=0.0 H=1.1 NRBC % 56376-0 0.0 % L=0.0 H=0.0 NEUT abs count 751-8 10.5 th/cmm L=1.6 H=8. 4 LYMPH abs count 731-0 1.0 th/cmm L=1.5 H=4 .0 MONO abs count 742-7 1.0 th/cmm L=0.2 H=1. 0 EOS abs count 711-2 0.1 th/cmm L=0.0 H=0.5 BASO abs count 704-7 0.1 th/cmm L=0.0 H=0. 2 IG abs count 93033-7 0.3 th/cmm L=0.0 H=0.1 NRBC abs count 97011-9 0.0 mil/cmm L=0.0 H=0. 0 RBC 789-8 4.65 mil/cmm L=4.30 H=6.20 HEMOGLOBIN 718-7 14.0 gm/dL L=13.0 H=17.0 HEMATOCRIT 4544-3 42 % L=45 H=52 MCV 787-2 90 fL L=82 H=92 MCH 785-6 30.1 pg L=27.0 H=31.0 MCHC 786-4 33.3 % L=32.0 H=36.0 RDW-SD 788-0 44.9 fL L=39.0 H=49.0 PLATELET COUNT 777-3 276 th/cmm L=150 H=45 0 CBC W/ DIFFERENTIAL* - Colle ct Date/Time: 06/13/2022 06:36 Test Name Code Test Result Test Units Test Ref Rang e WBC 6690-2 11.33 th/cmm L=5.00 H=10.00 NEUT % 75.2 % L=40.0 H=80.0 LYMPH % 11.3 % L=10.0 H=50.0 MONO % 25529-6 10.3 % L=2.0 H=12.0 EOS % 1.3 % L=0.0 H=8.0 BASO % 0.5 % L=0.0 H=3.0 IG % 2514-8 1.4 % L=0.0 H=1.1 NRBC % 19459-4 0.0 % L=0.0 H=0.0 NEUT abs count 751-8 8.5 th/cmm L=1.6 H=8. 4 LYMPH abs count 731-0 1.3 th/cmm L=1.5 H=4 .0 MONO abs count 742-7 1.2 th/cmm L=0.2 H=1. 0 EOS abs count 711-2 0.2 th/cmm L=0.0 H=0.5 BASO abs count 704-7 0.1 th/cmm L=0.0 H=0. 2 IG abs count 61060-7 0.2 th/cmm L=0.0 H=0.1 NRBC abs count 07988-1 0.0 mil/cmm L=0.0 H=0. 0 RBC 789-8 4.59 mil/cmm L=4.30 H=6.20 HEMOGLOBIN 718-7 13.6 gm/dL L=13.0 H=17.0 HEMATOCRIT 4544-3 42 % L=45 H=52 MCV 787-2 91 fL L=82 H=92 MCH 785-6 29.6 pg L=27.0 H=31.0 MCHC 786-4 32.5 % L=32.0 H=36.0 RDW-SD 788-0 45.8 fL L=39.0 H=49.0 PLATELET COUNT 777-3 253 th/cmm L=150 H=45 0 CBC W/ DIFFERENTIAL* - Colle ct Date/Time: 06/12/2022 06:25 Test Name Code Test Result Test Units Test Ref Rang e WBC 6690-2 12.57 th/cmm L=5.00 H=10.00 NEUT % 80.3 % L=40.0 H=80.0 LYMPH % 6.8 % L=10.0 H=50.0 MONO % 23233-5 10.4 % L=2.0 H=12.0 EOS % 0.9 % L=0.0 H=8.0 BASO % 0.4 % L=0.0 H=3.0 IG % 2514-8 1.2 % L=0.0 H=1.1 NRBC % 98505-7 0.0 % L=0.0 H=0.0 NEUT abs count 751-8 10.1 th/cmm L=1.6 H=8. 4 LYMPH abs count 731-0 0.9 th/cmm L=1.5 H=4 .0 MONO abs count 742-7 1.3 th/cmm L=0.2 H=1. 0 EOS abs count 711-2 0.1 th/cmm L=0.0 H=0.5 BASO abs count 704-7 0.1 th/cmm L=0.0 H=0. 2 IG abs count 43516-2 0.2 th/cmm L=0.0 H=0.1 NRBC abs count 98622-3 0.0 mil/cmm L=0.0 H=0. 0 RBC 789-8 4.51 mil/cmm L=4.30 H=6.20 HEMOGLOBIN 718-7 13.6 gm/dL L=13.0 H=17.0 HEMATOCRIT 4544-3 41 % L=45 H=52 MCV 787-2 91 fL L=82 H=92 MCH 785-6 30.2 pg L=27.0 H=31.0 MCHC 786-4 33.3 % L=32.0 H=36.0 RDW-SD 788-0 46.1 fL L=39.0 H=49.0 PLATELET COUNT 777-3 213 th/cmm L=150 H=45 0 CBC W/ DIFFERENTIAL* - [facility] ct Date/Time: 06/11/2022 06:15 Test Name Code Test Result Test Units Test Ref Rang e WBC 6690-2 12.36 th/cmm L=5.00 H=10.00 NEUT % 79.8 % L=40.0 H=80.0 LYMPH % 8.4 % L=10.0 H=50.0 MONO % 09942-4 10.5 % L=2.0 H=12.0 EOS % 0.5 % L=0.0 H=8.0 BASO % 0.3 % L=0.0 H=3.0 IG % 2514-8 0.5 % L=0.0 H=1.1 NRBC % 29336-5 0.0 % L=0.0 H=0.0 NEUT abs count 751-8 9.9 th/cmm L=1.6 H=8. 4 LYMPH abs count 731-0 1.0 th/cmm L=1.5 H=4 .0 MONO abs count 742-7 1.3 th/cmm L=0.2 H=1. 0 EOS abs count 711-2 0.1 th/cmm L=0.0 H=0.5 BASO abs count 704-7 0.0 th/cmm L=0.0 H=0. 2 IG abs count 08400-6 0.1 th/cmm L=0.0 H=0.1 NRBC abs count 74879-8 0.0 mil/cmm L=0.0 H=0. 0 RBC 789-8 3.92 mil/cmm L=4.30 H=6.20 HEMOGLOBIN 718-7 11.8 gm/dL L=13.0 H=17.0 HEMATOCRIT 4544-3 36 % L=45 H=52 MCV 787-2 92 fL L=82 H=92 MCH 785-6 30.1 pg L=27.0 H=31.0 MCHC 786-4 32.9 % L=32.0 H=36.0 RDW-SD 788-0 46.7 fL L=39.0 H=49.0 PLATELET COUNT 777-3 178 th/cmm L=150 H=45 0 CBC W/ DIFFERENTIAL* - [facility] ct Date/Time: 06/10/2022 06:25 Test Name Code Test Result Test Units Test Ref Rang e WBC 6690-2 12.66 th/cmm L=5.00 H=10.00 NEUT % 80.9 % L=40.0 H=80.0 LYMPH % 9.3 % L=10.0 H=50.0 MONO % 00062-1 8.9 % L=2.0 H=12.0 EOS % 0.2 % L=0.0 H=8.0 BASO % 0.2 % L=0.0 H=3.0 IG % 2514-8 0.5 % L=0.0 H=1.1 NRBC % 46318-5 0.0 % L=0.0 H=0.0 NEUT abs count 751-8 10.3 th/cmm L=1.6 H=8. 4 LYMPH abs count 731-0 1.2 th/cmm L=1.5 H=4 .0 MONO abs count 742-7 1.1 th/cmm L=0.2 H=1. 0 EOS abs count 711-2 0.0 th/cmm L=0.0 H=0.5 BASO abs count 704-7 0.0 th/cmm L=0.0 H=0. 2 IG abs count 60343-7 0.1 th/cmm L=0.0 H=0.1 NRBC abs count 74434-5 0.0 mil/cmm L=0.0 H=0. 0 RBC 789-8 3.88 mil/cmm L=4.30 H=6.20 HEMOGLOBIN 718-7 11.8 gm/dL L=13.0 H=17.0 HEMATOCRIT 4544-3 35 % L=45 H=52 MCV 787-2 91 fL L=82 H=92 MCH 785-6 30.4 pg L=27.0 H=31.0 MCHC 786-4 33.6 % L=32.0 H=36.0 RDW-SD 788-0 45.7 fL L=39.0 H=49.0 PLATELET COUNT 777-3 157 th/cmm L=150 H=45 0 CBC W/ DIFFERENTIAL* - Colle ct Date/Time: 06/09/2022 06:11 Test Name Code Test Result Test Units Test Ref Rang e WBC 6690-2 14.04 th/cmm L=5.00 H=10.00 NEUT % 83.2 % L=40.0 H=80.0 LYMPH % 6.0 % L=10.0 H=50.0 MONO % 82873-5 10.0 % L=2.0 H=12.0 EOS % 0.1 % L=0.0 H=8.0 BASO % 0.3 % L=0.0 H=3.0 IG % 2514-8 0.4 % L=0.0 H=1.1 NRBC % 24782-7 0.0 % L=0.0 H=0.0 NEUT abs count 751-8 11.7 th/cmm L=1.6 H=8. 4 LYMPH abs count 731-0 0.8 th/cmm L=1.5 H=4 .0 MONO abs count 742-7 1.4 th/cmm L=0.2 H=1. 0 EOS abs count 711-2 0.0 th/cmm L=0.0 H=0.5 BASO abs count 704-7 0.0 th/cmm L=0.0 H=0. 2 IG abs count 84899-7 0.1 th/cmm L=0.0 H=0.1 NRBC abs count 90404-8 0.0 mil/cmm L=0.0 H=0. 0 RBC 789-8 4.51 mil/cmm L=4.30 H=6.20 HEMOGLOBIN 718-7 13.5 gm/dL L=13.0 H=17.0 HEMATOCRIT 4544-3 41 % L=45 H=52 MCV 787-2 91 fL L=82 H=92 MCH 785-6 29.9 pg L=27.0 H=31.0 MCHC 786-4 33.0 % L=32.0 H=36.0 RDW-SD 788-0 45.7 fL L=39.0 H=49.0 PLATELET COUNT 777-3 178 th/cmm L=150 H=45 0 CBC W/ DIFFERENTIAL* - Colle ct Date/Time: 06/08/2022 17:33 Test Name Code Test Result Test Units Test Ref Rang e WBC 6690-2 13.89 th/cmm L=5.00 H=10.00 NEUT % 79.3 % L=40.0 H=80.0 LYMPH % 11.1 % L=10.0 H=50.0 MONO % 20221-3 8.4 % L=2.0 H=12.0 EOS % 0.4 % L=0.0 H=8.0 BASO % 0.4 % L=0.0 H=3.0 IG % 2514-8 0.4 % L=0.0 H=1.1 NRBC % 73222-9 0.0 % L=0.0 H=0.0 NEUT abs count 751-8 11.0 th/cmm L=1.6 H=8. 4 LYMPH abs count 731-0 1.5 th/cmm L=1.5 H=4 .0 MONO abs count 742-7 1.2 th/cmm L=0.2 H=1. 0 EOS abs count 711-2 0.1 th/cmm L=0.0 H=0.5 BASO abs count 704-7 0.1 th/cmm L=0.0 H=0. 2 IG abs count 55134-9 0.1 th/cmm L=0.0 H=0.1 NRBC abs count 01049-6 0.0 mil/cmm L=0.0 H=0. 0 RBC 789-8 5.01 mil/cmm L=4.30 H=6.20 HEMOGLOBIN 718-7 15.2 gm/dL L=13.0 H=17.0 HEMATOCRIT 4544-3 45 % L=45 H=52 MCV 787-2 90 fL L=82 H=92 MCH 785-6 30.3 pg L=27.0 H=31.0 MCHC 786-4 33.7 % L=32.0 H=36.0 RDW-SD 788-0 43.8 fL L=39.0 H=49.0 PLATELET COUNT 777-3 218 th/cmm L=150 H=45 0 CLOSTRIDIUM DIFFICILE BY PCR * - Collect Date/Time: 06/12/2022 13:36 Test Name Code Test Result Test Units Test Ref Rang e Consistency = 26718-2 WATERY N/A C. DIFFICILE DNA 90326-1 NEGATIVE N/A Normal: Negative JOHN [employer]* - Co llect Date/Time: 06/08/2022 19:30 Test Name Code Test Result Test Units Test Ref Rang e COVID 08789-5 NEGATIVE N/A Normal: Negati ve Tier- 33287-7 INPATIENT/ED N/A URINALYSIS WITH REFLEX CULT IF POSITIVE* - Collect Date/Time: 06/08/2022 17:33 Test Name Code Test Result Test Units Test Ref Rang e COLLECTION MODE: 81726-8 CLEAN CATCH N/A Color 5778-6 YELLOW N/A yellow Appearance 5767-9 CLEAR N/A clear Glucose urine 63424-5 >=1000 N/A negative mg /dl Bilirubin 5770-3 NEGATIVE N/A negative Ketones 2514-8 NEGATIVE N/A negative mg/dl Spec gravity 5811-5 1.015 N/A 1.003 - 1.03 0 pH urine 2756-5 6.0 N/A 5.0 - 7.0 Protein 61278-4 NEGATIVE N/A negative mg/dl Urobilinogen 00388-1 0.2 N/A <or= 1 EU/dl Nitrite. 5802-4 NEGATIVE N/A negative Blood 5794-3 NEGATIVE N/A negative Leukocytes. NEGATIVE N/A negative MICROSCOPIC NOT INDICAT N/A Active Medications Medications Administered During Visit Medication Dose Units Frequency Route Date/Time of Last Dose ACETAMINOPHEN INJ IVPB: 1000MG/100ML 1000 MG X1 06/08/2022 18:4 7 SODIUM CHLORIDE 0.9% 1000ML 1000 ML X1 06/08/2022 18:48 CefTRIAXone IVPB: 1GM/50ML 1 GM X1 06/08/2022 19:38 MetroNIDAZOLE IVPB PREMIX: 500MG/100ML 500 MG X1 06/08/2022 19:5 9 LACTATED RINGERS 1000ML 1000 ML CONT 06/09/2022 06:31 ACETAMINOPHEN INJ IVPB: 1000MG/100ML 1000 MG PRN Q6H 06/09/2022 05:0 4 MORPHINE INJ SYRINGE: 2MG/ML 2 MG PRN Q2H I SAP ANALYST 06/09/2022 07:56 ONDANSETRON INJ SDV: 4MG/2ML 4 MG PRN Q6H I SAP ANALYST 06/09/2022 05:04 MetroNIDAZOLE IVPB PREMIX: 500MG/100ML 500 MG Q6H 06/09/2022 02:4 5 LORazepam INJ SYRINGE: 2MG/ML 1 MG PRN Q4H IVP 06/09/2022 05:15 PANTOPRAZOLE INJ SDV: 40MG 40 MG DAILY IVP 06/09/2022 07:56 INSULIN MDV REGULAR: 1000UNITS/10ML PRN SUBQ 06/09/2022 08 :03 ACETAMINOPHEN INJ IVPB: 1000MG/100ML 1000 MG PRN IN PACU X1 06/09/2022 11 :01 POTASSIUM CHL IN D5%-1/2NS: 20mEq/1000ML 1000 ML CONT 06/09/2022 21:5 1 MORPHINE INJ SYRINGE: 2MG/ML 2 MG PRN Q2H I SAP ANALYST 06/11/2022 18:41 ONDANSETRON INJ SDV: 4MG/2ML 4 MG PRN Q6H I SAP ANALYST 06/14/2022 03:39 PANTOPRAZOLE INJ SDV: 40MG 40 MG DAILY IVP 06/16/2022 08:14 LISINOPRIL TABLET: 5MG 5 MG DAILY PO 06/16/2022 08:14 INSULIN MDV REGULAR: 1000UNITS/10ML PRN SUBQ 06/16/2022 08 :00 CefTRIAXone IVPB: 1GM/50ML 1000 MG Q24H 06/15/2022 18:31 MetroNIDAZOLE IVPB PREMIX: 500MG/100ML 500 MG Q6H 06/15/2022 22:2 7 ACETAMINOPHEN INJ IVPB: 1000MG/100ML 1000 MG PRN Q6H 06/15/2022 20:2 6 ZOLPIDEM TABLET: 5MG 5 MG PRN BEDTIME PO 06/12/2022 21:04 POTASSIUM CHL IN D5%-1/2NS: 20mEq/1000ML 1000 ML CONT 06/15/2022 10:2 3 Encounters Encounter Diagnosis Diagnosis Code Start Date Acute appendicitis with perf oration, localized peritonitis, and gangrene, without abscess [id number] 06/12/2022 Social History Smoking Status Code Start Date End Date Never smoker [id number] Patient Decision Aids Patient Decision Aid LAPAROSCOPIC APPENDICECTOMY Non-pharmacological Pain Man agement Therapies for Adults Pain Management After Surger y Discharge Instructions You were admitted to [facility] on 06/12/2022 11:25 with a principal diagnosis of Acute appendicitis with perforation, localized peritonitis, and gangrene, without abscess You had the following procedures done:Resection of Appendix, Percutaneous Endoscopic ApproachAnesthesia, Intraperitoneal Proc, Lower Abdomen, w/Laparoscopy; NOS You had the following tests done:GLUCOSE FINGER/HEEL CAPILLARYCBC W/ DIFFERENTIAL*GLUCOSE FINGER/HEEL CAPILLARYGLUCOSE FINGER/HEEL CAPILLARYGLUCOSE FINGER/HEEL CAPILLARYGLUCOSE FINGER/HEEL CAPILLARYBASIC METABOLIC PANEL (BMP)CBC W/ DIFFERENTIAL*GLUCOSE FINGER/HEEL CAPILLARYGLUCOSE FINGER/HEEL CAPILLARYGLUCOSE FINGER/HEEL CAPILLARYGLUCOSE FINGER/HEEL CAPILLARYCBC W/ DIFFERENTIAL*GLUCOSE FINGER/HEEL CAPILLARYGLUCOSE FINGER/HEEL CAPILLARYGLUCOSE FINGER/HEEL CAPILLARYGLUCOSE FINGER/HEEL CAPILLARYBASIC METABOLIC PANEL (BMP)CBC W/ DIFFERENTIAL*GLUCOSE FINGER/HEEL CAPILLARYGLUCOSE FINGER/HEEL CAPILLARYGLUCOSE FINGER/HEEL CAPILLARYCLOSTRIDIUM DIFFICILE BY PCR*GLUCOSE FINGER/HEEL CAPILLARYGLUCOSE FINGER/HEEL CAPILLARYBASIC METABOLIC PANEL (BMP)CBC W/ DIFFERENTIAL*GLUCOSE FINGER/HEEL CAPILLARYGLUCOSE FINGER/HEEL CAPILLARYGLUCOSE FINGER/HEEL CAPILLARYGLUCOSE FINGER/HEEL CAPILLARYCBC W/ DIFFERENTIAL*GLUCOSE FINGER/HEEL CAPILLARYGLUCOSE FINGER/HEEL CAPILLARYGLUCOSE FINGER/HEEL CAPILLARYGLUCOSE FINGER/HEEL CAPILLARYBASIC METABOLIC PANEL (BMP)CBC W/ DIFFERENTIAL*GLUCOSE FINGER/HEEL CAPILLARYGLUCOSE FINGER/HEEL CAPILLARYGLUCOSE FINGER/HEEL CAPILLARYGLUCOSE FINGER/HEEL CAPILLARYGLUCOSE FINGER/HEEL CAPILLARYBASIC METABOLIC PANEL (BMP)CBC W/ DIFFERENTIAL*[facility] COVID GENEXPERT*CBC W/ DIFFERENTIAL*COMPREHENSIVE METABOLIC PANEL (CMP)LIPASE* NEWURINALYSIS WITH REFLEX CULT IF POSITIVE* You were discharged from [facility] on 06/16/2022 14:10 Should you have any questions prior to discharge, please contact a member of your healthcare team. If you have left the hospital and have any questions, please contact your primary care physician. Chief Complaint and Reason For Visit Chief Complaint Date of Onset ACUTE APPENDICITIS 06/11/2022 Function Status Unknown or Not Available. Plan of Care Unknown or Not Available. Referral/Transition of Care Unknown or Not Available.
--- OUTSIDE RECORDS SUMMARY | 2023-07-10 15:45 | XMS_ITS | CCD ---
Author Name Unknown Address [address] [place] [address] [phone] Organization Unknown Address [address] [place] [address] [phone] Care Team Providers Care Still Pump Operator Name Role Phone MINH ROACH Attending Physician [phone] Vital Signs Unknown or Not Available. Allergies Allergy Code Allergy Type Reaction Status No Known Allergies 0 No known allergies Active Procedures Procedure Code Procedure Type Date Injection Anesthetic Agent/S teroid Transforaminal Epidural Lumbar/Sacral Single Level 99214 CPT 10/0 01/2022 History of Immunizations Unknown or Not Available. Problems Problem Code Start Date Resolved Date Status Sprain of thoracic region 129677212 Active Diabetes 2 69494978 Active Results Unknown or Not Available. Active Medications Medication Code Dose Units Frequency Route Modificatio n Start Date/Time Fish Oil 1000MG Oral Capsule, Liquid Filled [id number] 1000 MILLIGRAMS DAILY ORAL 14:22 Prescription Detail TAKE 1000 MILLIGRAMS ORAL DAILY Januvia 100MG Oral Tablet 035766 100 MILLIGRAMS DAILY ORAL 022 14:22 Prescription Detail TAKE 100 MILLIGRAMS ORAL DAILY Jardiance 10MG Oral Tablet 8803778 10 MILLIGRAMS DAILY ORAL 022 14:22 Prescription Detail TAKE 10 MILLIGRAMS ORAL DAILY Lisinopril 5MG Oral Tablet 468523 5 MILLIGRAMS DAILY ORAL 022 14:22 Prescription Detail TAKE 5 MILLIGRAMS ORAL DAILY Multi-Day Oral Tablet 22651388276 1 EACH DAILY ORAL 06/16/20 14:22 Prescription Detail TAKE 1 EACH ORAL DAILY Medications Administered During Visit Unknown or Not Available. Encounters Encounter Diagnosis Diagnosis Code Start Date Spinal stenosis, lumbar dontrell on without neurogenic claudication [id number] 05/05/2022 Social History Smoking Status Code Start Date End Date Never smoker [id number] Patient Decision Aids Unknown or Not Available. Discharge Instructions You were admitted to [facility] on 05/05/2022 10:02 with a principal diagnosis of Spinal stenosis, lumbar region without neurogenic claudication You had the following procedures done:Injection Anesthetic Agent/Steroid Transforaminal Epidural Lumbar/Sacral Single Level You were discharged from [facility] on 05/05/2022 12:37 Should you have any questions prior to [...]
--- OUTSIDE RECORDS SUMMARY | 2023-07-10 15:46 | XMS_ITS | CCD ---
Author Name Unknown Address [address] [place] [address] [phone] Organization Unknown Address [address] [place] [address] [id number] Care Team Providers Care Public Relations Assistant Name Role Phone SHAYNA SEGURA Attending Physician [phone] SHAYNA SEGURA Rounding (Secondary) Physician [phone] Vital Signs Unknown or Not Available. Allergies Allergy Code Allergy Type Reaction Status No Known Allergies 0 No known allergies Active Procedures Unknown or Not Available. History of Immunizations Unknown or Not Available. Problems Problem Code Start Date Resolved Date Status Sprain of thoracic region 423541652 Active Diabetes 2 76791920 Active Results Unknown or Not Available. Active Medications Medication Code Dose Units Frequency Route Modificatio n Start Date/Time Fish Oil 1000MG Oral Capsule, Liquid Filled 20790479179 1000 MILLIGRAMS DAILY ORAL 14:22 Prescription Detail TAKE 1000 MILLIGRAMS ORAL DAILY Januvia 100MG Oral Tablet 431139 100 MILLIGRAMS DAILY ORAL 14:22 Prescription Detail TAKE 100 MILLIGRAMS ORAL DAILY Jardiance 10MG Oral Tablet 3623881 10 MILLIGRAMS DAILY ORAL 14:22 Prescription Detail TAKE 10 MILLIGRAMS ORAL DAILY Lisinopril 5MG Oral Tablet 484237 5 MILLIGRAMS DAILY ORAL 14:22 Prescription Detail TAKE 5 MILLIGRAMS ORAL DAILY Multi-Day Oral Tablet 22201862601 1 EACH DAILY ORAL 06/16/20 14:22 Prescription Detail TAKE 1 EACH ORAL DAILY Medications Administered During Visit Unknown or Not Available. Encounters Encounter Diagnosis Diagnosis Code Start Date Person consulting for explan ation of examination or test findings Z712 11/09/2021 Social History Smoking Status Code Start Date End Date Never smoker [id number] Patient Decision Aids Unknown or Not Available. Discharge Instructions You were admitted to [facility] on 11/09/2021 13:28 with a principal diagnosis of Person consulting for explanation of examination or test findings You were discharged from [facility] on 11/09/2021 13:32 Should you have any questions prior to [...]
--- OUTSIDE RECORDS SUMMARY | 2023-07-10 15:46 | XMS_ITS | CCD ---
Author Name Unknown Address [address] [place] [address] [id number] Organization Unknown Address [address] [place] [address] [phone] Care Team Providers Care Heavy Line Technician Name Role Phone SHAYNA SEGURA Attending Physician [phone] SHAYNA SEGURA Rounding (Secondary) Physician [phone] Vital Signs Unknown or Not Available. Allergies Allergy Code Allergy Type Reaction Status No Known Allergies 0 No known allergies Active Procedures Unknown or Not Available. History of Immunizations Unknown or Not Available. Problems Problem Code Start Date Resolved Date Status Sprain of thoracic region 943364808 Active Diabetes 2 72278088 Active Results Unknown or Not Available. Active Medications Medication Code Dose Units Frequency Route Modificatio n Start Date/Time Fish Oil 1000MG Oral Capsule, Liquid Filled 69721085872 1000 MILLIGRAMS DAILY ORAL 14:22 Prescription Detail TAKE 1000 MILLIGRAMS ORAL DAILY Januvia 100MG Oral Tablet 946260 100 MILLIGRAMS DAILY ORAL 14:22 Prescription Detail TAKE 100 MILLIGRAMS ORAL DAILY Jardiance 10MG Oral Tablet 2307984 10 MILLIGRAMS DAILY ORAL 14:22 Prescription Detail TAKE 10 MILLIGRAMS ORAL DAILY Lisinopril 5MG Oral Tablet 169344 5 MILLIGRAMS DAILY ORAL 14:22 Prescription Detail TAKE 5 MILLIGRAMS ORAL DAILY Multi-Day Oral Tablet 28644397575 1 EACH DAILY ORAL 06/16/20 14:22 Prescription Detail TAKE 1 EACH ORAL DAILY Medications Administered During Visit Unknown or Not Available. Encounters Encounter Diagnosis Diagnosis Code Start Date Obstructive sleep apnea (adult) (pediatric) G473 3 09/23/2021 Social History Smoking Status Code Start Date End Date Never smoker [id number] Patient Decision Aids Unknown or Not Available. Discharge Instructions You were admitted to [facility] on 09/23/2021 10:08 with a principal diagnosis of Obstructive sleep apnea (adult) (pediatric) You were discharged from [facility] on 09/23/2021 10:09 Should you have any questions prior to [...]
--- OUTSIDE RECORDS SUMMARY | 2023-07-10 15:46 | XMS_ITS | CCD ---
Author Name Unknown Address [address] [place] [address] [id number] Organization Unknown Address [address] [place] [address] [phone] Care Team Providers Care Coremaker Experimental Name Role Phone MINH ROACH Attending Physician [phone] Vital Signs Unknown or Not Available. Allergies Allergy Code Allergy Type Reaction Status No Known Allergies 0 No known allergies Active Procedures Procedure Code Procedure Type Date Injection, Diagnostic/Therap eutic, Paravertebral Facet Joint, Lumbar Or Sacral; Single Level 04026 CPT 12/30/2021 Injection, Diagnostic/Therap eutic, Paravertebral Facet Joint, Lumbar Or Sacral; Second Level 30609 CPT 12/30/2021 Injection, Diagnostic/Therap eutic, Paravertebral Facet Joint, Lumbar Or Sacral; Third Or More 94668 CPT 12/30/2021 History of Immunizations Unknown or Not Available. Problems Problem Code Start Date Resolved Date Status Sprain of thoracic region 756758852 Active Diabetes 2 50195844 Active Results Unknown or Not Available. Active Medications Medication Code Dose Units Frequency Route Modificatio n Start Date/Time Fish Oil 1000MG Oral Capsule, Liquid Filled 87792152485 1000 MILLIGRAMS DAILY ORAL 14:22 Prescription Detail TAKE 1000 MILLIGRAMS ORAL DAILY Januvia 100MG Oral Tablet 005257 100 MILLIGRAMS DAILY ORAL 14:22 Prescription Detail TAKE 100 MILLIGRAMS ORAL DAILY Jardiance 10MG Oral Tablet 0199405 10 MILLIGRAMS DAILY ORAL 14:22 Prescription Detail TAKE 10 MILLIGRAMS ORAL DAILY Lisinopril 5MG Oral Tablet 446802 5 MILLIGRAMS DAILY ORAL 14:22 Prescription Detail TAKE 5 MILLIGRAMS ORAL DAILY Multi-Day Oral Tablet 72428499837 1 EACH DAILY ORAL 06/16/20 14:22 Prescription Detail TAKE 1 EACH ORAL DAILY Medications Administered During Visit Unknown or Not Available. Encounters Encounter Diagnosis Diagnosis Code Start Date Spondylosis without myelopat hy or radiculopathy, lumbar region [id number] 12/30/2021 Social History Smoking Status Code Start Date End Date Never smoker [id number] Patient Decision Aids Unknown or Not Available. Discharge Instructions You were admitted to [facility] on 12/30/2021 08:59 with a principal diagnosis of Spondylosis without myelopathy or radiculopathy, lumbar region You had the following procedures done:Injection, Diagnostic/Therapeutic, Paravertebral Facet Joint, Lumbar Or Sacral; Single LevelInjection, Diagnostic/Therapeutic, Paravertebral Facet Joint, Lumbar Or Sacral; Second LevelInjection, Diagnostic/Therapeutic, Paravertebral Facet Joint, Lumbar Or Sacral; Third Or More You were discharged from [facility] on 12/30/2021 11:00 Should you have any questions prior to [...]
--- OUTSIDE RECORDS SUMMARY | 2023-07-10 15:46 | XMS_ITS | CCD ---
Author Name Unknown Address [address] [place] [address] [phone] Organization Unknown Address [address] [place] [address] [phone] Care Team Providers Care Loan Examiner Name Role Phone MINH ROACH Attending Physician [phone] Vital Signs Unknown or Not Available. Allergies Allergy Code Allergy Type Reaction Status No Known Allergies 0 No known allergies Active Procedures Unknown or Not Available. History of Immunizations Unknown or Not Available. Problems Problem Code Start Date Resolved Date Status Sprain of thoracic region 576885567 Active Diabetes 2 21399534 Active Results Unknown or Not Available. Active Medications Medication Code Dose Units Frequency Route Modificatio n Start Date/Time Fish Oil 1000MG Oral Capsule, Liquid Filled 68152074111 1000 MILLIGRAMS DAILY ORAL 14:22 Prescription Detail TAKE 1000 MILLIGRAMS ORAL DAILY Januvia 100MG Oral Tablet 695766 100 MILLIGRAMS DAILY ORAL 14:22 Prescription Detail TAKE 100 MILLIGRAMS ORAL DAILY Jardiance 10MG Oral Tablet 2155003 10 MILLIGRAMS DAILY ORAL 14:22 Prescription Detail TAKE 10 MILLIGRAMS ORAL DAILY Lisinopril 5MG Oral Tablet 241885 5 MILLIGRAMS DAILY ORAL 14:22 Prescription Detail TAKE 5 MILLIGRAMS ORAL DAILY Multi-Day Oral Tablet 99203975221 1 EACH DAILY ORAL 06/16/20 14:22 Prescription Detail TAKE 1 EACH ORAL DAILY Medications Administered During Visit Unknown or Not Available. Encounters Encounter Diagnosis Diagnosis Code Start Date Spinal stenosis, lumbar dontrell on without neurogenic claudication [id number] 11/29/2021 Social History Smoking Status Code Start Date End Date Never smoker [id number] Patient Decision Aids Unknown or Not Available. Discharge Instructions You were admitted to [facility] on 11/29/2021 07:54 with a principal diagnosis of Spinal stenosis, lumbar region without neurogenic claudication You were discharged from [facility] on 11/29/2021 07:54 Should you have any questions prior to discharge, please contact a member of your healthcare team. If you have left the hospital and have any questions, please contact your primary care physician. Chief Complaint and Reason For Visit Chief Complaint Date of Onset SPINAL STENOSIS Function Status Unknown or Not Available. Plan of Care Unknown or Not Available. Referral/Transition of Care Unknown or Not Available.
--- OUTSIDE RECORDS SUMMARY | 2023-07-10 15:46 | XMS_ITS | CCD ---
Author Name Unknown Address [address] [place] [address] [phone] Organization Unknown Address [address] [place] [address] [phone] Care Team Providers Care District Adviser Name Role Phone MINH ROACH Attending Physician [phone] Vital Signs Unknown or Not Available. Allergies Allergy Code Allergy Type Reaction Status No Known Allergies 0 No known allergies Active Procedures Unknown or Not Available. History of Immunizations Unknown or Not Available. Problems Problem Code Start Date Resolved Date Status Sprain of thoracic region 402645387 Active Diabetes 2 45720737 Active Results Unknown or Not Available. Active Medications Medication Code Dose Units Frequency Route Modificatio n Start Date/Time Fish Oil 1000MG Oral Capsule, Liquid Filled 92571803784 1000 MILLIGRAMS DAILY ORAL 14:22 Prescription Detail TAKE 1000 MILLIGRAMS ORAL DAILY Januvia 100MG Oral Tablet 692811 100 MILLIGRAMS DAILY ORAL 14:22 Prescription Detail TAKE 100 MILLIGRAMS ORAL DAILY Jardiance 10MG Oral Tablet 3493559 10 MILLIGRAMS DAILY ORAL 14:22 Prescription Detail TAKE 10 MILLIGRAMS ORAL DAILY Lisinopril 5MG Oral Tablet 639729 5 MILLIGRAMS DAILY ORAL 14:22 Prescription Detail TAKE 5 MILLIGRAMS ORAL DAILY Multi-Day Oral Tablet 66645389724 1 EACH DAILY ORAL 06/16/20 14:22 Prescription Detail TAKE 1 EACH ORAL DAILY Medications Administered During Visit Unknown or Not Available. Encounters Encounter Diagnosis Diagnosis Code Start Date Other intervertebral disc degeneration, lumbar r egion M5136 11/10/2021 Social History Smoking Status Code Start Date End Date Never smoker [id number] Patient Decision Aids Unknown or Not Available. Discharge Instructions You were admitted to [facility] on 11/10/2021 10:51 with a principal diagnosis of Other intervertebral disc degeneration, lumbar region You were discharged from [facility] on 11/10/2021 10:51 Should you have any questions prior to [...]
--- OUTSIDE RECORDS SUMMARY | 2023-07-10 15:46 | XMS_ITS | CCD ---
Author Name Unknown Address [address] [place] [address] [phone] Organization Unknown Address [address] [place] [address] [phone] Care Team Providers Care Data Modeler Name Role Phone BRANDIE OWUSU Attending Physician [phone] Vital Signs Unknown or Not Available. Allergies Allergy Code Allergy Type Reaction Status No Known Allergies 0 No known allergies Active Procedures Unknown or Not Available. History of Immunizations Unknown or Not Available. Problems Problem Code Start Date Resolved Date Status Sprain of thoracic region 886990717 Active Diabetes 2 08388486 Active Results COMPREHENSIVE METABOLIC PANE L (CMP) - Collect Date/Time: 11/22/2021 08:53 Test Name Code Test Result Test Units Test Ref Rang e GLUCOSE 2345-7 135 mg/dL L=70 H=116 BUN 3094-0 28 mg/dL L=6 H=25 CREATININE 2160-0 0.98 mg/dL L=0.67 H=1.17 SODIUM SERUM 2951-2 139 mmol/L L=136 H=145 POTASSIUM SERUM 2823-3 4.1 mmol/L L=3.4 H=5 .2 CHLORIDE SERUM 2075-0 103 mmol/L L=96 H=110 CARBON DIOXIDE (CO2) 2028-9 29 mmol/L L=22 H=34 ANION GAP 55169-6 7.3 mmol/L CALCIUM SERUM 69835-7 8.9 mg/dL L=8.2 H=10. 2 BILIRUBIN TOTAL 1975-2 0.6 mg/dL L=0.0 H=1 .3 ALK. PHOS. 6768-6 80 U/L L=46 H=116 SGOT (AST) 1920-8 27 U/L L=15 H=37 SGPT (ALT) 1742-6 63 U/L L=12 H=78 TOTAL PROTEIN 2885-2 7.7 gm/dL L=6.0 H=8.0 ALBUMIN 1751-7 4.2 gm/dL L=3.4 H=5.0 AGE 50 years eGFR (non-Afr.Amer.) 67022-8 80 mL/min eGFR (Afr-Ghanaian) 13553-1 97 mL/min HEMOGLOBIN A1C* - Collect Da te/Time: 11/22/2021 08:53 Test Name Code Test Result Test Units Test Ref Rang e Hgb A1c 4548-4 6.2 % L=3.8 H=5.7 MEAN BLOOD GLUCOSE 82461-4 120 mg/dL LIPID PANEL* - Collect Date/ Time: 11/22/2021 08:53 Test Name Code Test Result Test Units Test Ref Rang e CHOLESTEROL 2093-3 241 mg/dL L=0 H=200 TRIGLYCERIDES 2571-8 140 mg/dL L=63 H=313 HDL 2085-9 54 mg/dL L=28 H=63 non-HDL-C 99834-6 187 mg/dL L=0 H=160 LDL (CALC) 92116-5 159 mg/dL L=0 H=130 % HDL 22.4 % Chol/HDL Ratio 9830-1 4.5 L=0.0 H=4. 9 CHD Relative Risk 0.9 x Avg L=0.0 H =1.0 LDL/HDL Ratio 68418-9 2.9 L=0.0 H=3.5 CHD Relative Risk. 0.8 x Avg L=0.0 H=1.0 FASTING STATUS: FASTING N/A Active Medications Medication Code Dose Units Frequency Route Modificatio n Start Date/Time Fish Oil 1000MG Oral Capsule, Liquid Filled 93236839868 1000 MILLIGRAMS DAILY ORAL 14:22 Prescription Detail TAKE 1000 MILLIGRAMS ORAL DAILY Januvia 100MG Oral Tablet 827473 100 MILLIGRAMS DAILY ORAL 14:22 Prescription Detail TAKE 100 MILLIGRAMS ORAL DAILY Jardiance 10MG Oral Tablet 1889712 10 MILLIGRAMS DAILY ORAL 14:22 Prescription Detail TAKE 10 MILLIGRAMS ORAL DAILY Lisinopril 5MG Oral Tablet 273321 5 MILLIGRAMS DAILY ORAL 14:22 Prescription Detail TAKE 5 MILLIGRAMS ORAL DAILY Multi-Day Oral Tablet 38578282626 1 EACH DAILY ORAL 06/16/20 22 14:22 Prescription Detail TAKE 1 EACH ORAL DAILY Medications Administered During Visit Unknown or Not Available. Encounters Encounter Diagnosis Diagnosis Code Start Date Hyperlipidemia [id number] 11/22/2021 Social History Smoking Status Code Start Date End Date Never smoker [id number] Patient Decision Aids Unknown or Not Available. Discharge Instructions You were admitted to [facility] on 11/22/2021 08:03 with a principal diagnosis of Hyperlipidemia, unspecified You had the following tests done:COMPREHENSIVE METABOLIC PANEL (CMP)HEMOGLOBIN A1C*LIPID PANEL* You were discharged from [facility] on 11/22/2021 08:03 Should you have any questions prior to [...]
--- OUTSIDE RECORDS SUMMARY | 2023-07-10 15:46 | XMS_ITS | CCD ---
Author Name Unknown Address [address] [place] [address] [id number] Organization Unknown Address [address] [place] [address] [phone] Care Team Providers Care Loan Servicing Representative Name Role Phone MINH ROACH Attending Physician [phone] Vital Signs Vital Sign Value Unit Date/Time Recent/Initial ? BP Systolic 125 mmHg 12/09/2021 11:47 Initial VS BP Diastolic 74 mmHg 12/09/2021 11:47 Initia l VS Respiratory Rate 14 bpm 12/09/2021 11:47 In itial VS Heart Rate 51 bpm 12/09/2021 11:47 Initial VS O2 % BldC Oximetry 96 % 12/09/2021 11:47 Initial VS Allergies Allergy Code Allergy Type Reaction Status No Known Allergies 0 No known allergies Active Procedures Procedure Code Procedure Type Date Injection, Diagnostic/Therap eutic, Paravertebral Facet Joint, Lumbar Or Sacral; Single Level 12148 CPT 12/09/2021 Injection, Diagnostic/Therap eutic, Paravertebral Facet Joint, Lumbar Or Sacral; Second Level 51337 CPT 12/09/2021 Injection, Diagnostic/Therap eutic, Paravertebral Facet Joint, Lumbar Or Sacral; Second Level 98038 CPT 12/09/2021 History of Immunizations Unknown or Not Available. Problems Problem Code Start Date Resolved Date Status Sprain of thoracic region 761867022 Active Diabetes 2 56558024 Active Results Unknown or Not Available. Active Medications Medication Code Dose Units Frequency Route Modificatio n Start Date/Time Fish Oil 1000MG Oral Capsule, Liquid Filled 46269277063 1000 MILLIGRAMS DAILY ORAL 14:22 Prescription Detail TAKE 1000 MILLIGRAMS ORAL DAILY Januvia 100MG Oral Tablet 690649 100 MILLIGRAMS DAILY ORAL 022 14:22 Prescription Detail TAKE 100 MILLIGRAMS ORAL DAILY Jardiance 10MG Oral Tablet 4029274 10 MILLIGRAMS DAILY ORAL 14:22 Prescription Detail TAKE 10 MILLIGRAMS ORAL DAILY Lisinopril 5MG Oral Tablet 186898 5 MILLIGRAMS DAILY ORAL 14:22 Prescription Detail TAKE 5 MILLIGRAMS ORAL DAILY Multi-Day Oral Tablet 38912239198 1 EACH DAILY ORAL 06/16/20 14:22 Prescription Detail TAKE 1 EACH ORAL DAILY Medications Administered During Visit Unknown or Not Available. Encounters Encounter Diagnosis Diagnosis Code Start Date Spondylosis without myelopat hy or radiculopathy, lumbar region [id number] 12/09/2021 Social History Smoking Status Code Start Date End Date Never smoker [id number] Patient Decision Aids Unknown or Not Available. Discharge Instructions You were admitted to [facility] on 12/09/2021 10:40 with a principal diagnosis of Spondylosis without myelopathy or radiculopathy, lumbar region You had the following procedures done:Injection, Diagnostic/Therapeutic, Paravertebral Facet Joint, Lumbar Or Sacral; Single LevelInjection, Diagnostic/Therapeutic, Paravertebral Facet Joint, Lumbar Or Sacral; Second LevelInjection, Diagnostic/Therapeutic, Paravertebral Facet Joint, Lumbar Or Sacral; Second Level You were discharged from [facility] on 12/09/2021 11:48 Should you have any questions prior to [...]
--- OUTSIDE RECORDS SUMMARY | 2023-07-10 15:47 | XMS_ITS | CCD ---
Author Name Unknown Address [address] [place] [address] [phone] Organization Unknown Address [address] [place] [address] [phone] Care Team Providers Care Supervisor Channel Process Name Role Phone BRANDIE OWUSU Attending Physician [phone] Vital Signs Unknown or Not Available. Allergies Allergy Code Allergy Type Reaction Status No Known Allergies 0 No known allergies Active Procedures Unknown or Not Available. History of Immunizations Unknown or Not Available. Problems Problem Code Start Date Resolved Date Status Sprain of thoracic region 525519729 Active Diabetes 2 40092120 Active Results Unknown or Not Available. Active Medications Medication Code Dose Units Frequency Route Modificatio n Start Date/Time Fish Oil 1000MG Oral Capsule, Liquid Filled 09408205589 1000 MILLIGRAMS DAILY ORAL 14:22 Prescription Detail TAKE 1000 MILLIGRAMS ORAL DAILY Januvia 100MG Oral Tablet 472485 100 MILLIGRAMS DAILY ORAL 14:22 Prescription Detail TAKE 100 MILLIGRAMS ORAL DAILY Jardiance 10MG Oral Tablet 2254024 10 MILLIGRAMS DAILY ORAL 14:22 Prescription Detail TAKE 10 MILLIGRAMS ORAL DAILY Lisinopril 5MG Oral Tablet 074555 5 MILLIGRAMS DAILY ORAL 14:22 Prescription Detail TAKE 5 MILLIGRAMS ORAL DAILY Multi-Day Oral Tablet 08802158023 1 EACH DAILY ORAL 06/16/20 14:22 Prescription Detail TAKE 1 EACH ORAL DAILY Medications Administered During Visit Unknown or Not Available. Encounters Unknown or Not Available. Social History Smoking Status Code Start Date End Date Never smoker [id number] Patient Decision Aids Unknown or Not Available. Discharge Instructions You were admitted to [facility] on 08/17/2021 09:04 You were discharged from [facility] on 08/17/2021 09:04 Should you have any questions prior to [...]
--- OUTSIDE RECORDS SUMMARY | 2023-07-10 15:47 | XMS_ITS | CCD ---
Author Name Unknown Address [address] [place] [address] [phone] Organization Unknown Address [address] [place] [address] [phone] Care Team Providers Care Chemist Helper Name Role Phone BRANDIE OWUSU Attending Physician [phone] Vital Signs Unknown or Not Available. Allergies Allergy Code Allergy Type Reaction Status No Known Allergies 0 No known allergies Active Procedures Unknown or Not Available. History of Immunizations Unknown or Not Available. Problems Problem Code Start Date Resolved Date Status Sprain of thoracic region [id number] Active Diabetes 2 35645213 Active Results Unknown or Not Available. Active Medications Medication Code Dose Units Frequency Route Modificatio n Start Date/Time Fish Oil 1000MG Oral Capsule, Liquid Filled [id number] 1000 MILLIGRAMS DAILY ORAL 14:22 Prescription Detail TAKE 1000 MILLIGRAMS ORAL DAILY Januvia 100MG Oral Tablet 034561 100 MILLIGRAMS DAILY ORAL 14:22 Prescription Detail TAKE 100 MILLIGRAMS ORAL DAILY Jardiance 10MG Oral Tablet 8216529 10 MILLIGRAMS DAILY ORAL 14:22 Prescription Detail TAKE 10 MILLIGRAMS ORAL DAILY Lisinopril 5MG Oral Tablet 063479 5 MILLIGRAMS DAILY ORAL 14:22 Prescription Detail TAKE 5 MILLIGRAMS ORAL DAILY Multi-Day Oral Tablet 54239339215 1 EACH DAILY ORAL 06/16/20 14:22 Prescription Detail TAKE 1 EACH ORAL DAILY Medications Administered During Visit Unknown or Not Available. Encounters Encounter Diagnosis Diagnosis Code Start Date Other specified epidermal thickening L858 08/17/2021 Social History Smoking Status Code Start Date End Date Never smoker [id number] Patient Decision Aids Unknown or Not Available. Discharge Instructions You were admitted to [facility] on 08/17/2021 18:47 with a principal diagnosis of Other specified epidermal thickening You were discharged from [facility] on 08/17/2021 18:47 Should you have any questions prior to [...]
--- OUTSIDE RECORDS SUMMARY | 2023-07-10 15:47 | XMS_ITS | CCD ---
Author Name Unknown Address [address] [place] [address] [phone] Organization Unknown Address [address] [place] [address] [phone] Care Team Providers Care Inventory Specialist Name Role Phone BRANDIE OWUSU Attending Physician [phone] Vital Signs Unknown or Not Available. Allergies Allergy Code Allergy Type Reaction Status No Known Allergies 0 No known allergies Active Procedures Unknown or Not Available. History of Immunizations Unknown or Not Available. Problems Problem Code Start Date Resolved Date Status Sprain of thoracic region 343230738 Active Diabetes 2 70079942 Active Results Unknown or Not Available. Active Medications Medication Code Dose Units Frequency Route Modificatio n Start Date/Time Fish Oil 1000MG Oral Capsule, Liquid Filled [id number] 1000 MILLIGRAMS DAILY ORAL 14:22 Prescription Detail TAKE 1000 MILLIGRAMS ORAL DAILY Januvia 100MG Oral Tablet 034473 100 MILLIGRAMS DAILY ORAL 14:22 Prescription Detail TAKE 100 MILLIGRAMS ORAL DAILY Jardiance 10MG Oral Tablet 1946652 10 MILLIGRAMS DAILY ORAL 14:22 Prescription Detail TAKE 10 MILLIGRAMS ORAL DAILY Lisinopril 5MG Oral Tablet 487006 5 MILLIGRAMS DAILY ORAL 14:22 Prescription Detail TAKE 5 MILLIGRAMS ORAL DAILY Multi-Day Oral Tablet 21929865090 1 EACH DAILY ORAL 06/16/20 14:22 Prescription Detail TAKE 1 EACH ORAL DAILY Medications Administered During Visit Unknown or Not Available. Encounters Encounter Diagnosis Diagnosis Code Start Date Chronic cough [id number] 08/05/2021 Social History Smoking Status Code Start Date End Date Never smoker [id number] Patient Decision Aids Unknown or Not Available. Discharge Instructions You were admitted to [facility] on 08/05/2021 08:09 with a principal diagnosis of Chronic cough You were discharged from [facility] on 08/05/2021 08:09 Should you have any questions prior to [...]
--- OUTSIDE RECORDS SUMMARY | 2023-07-10 15:47 | XMS_ITS | CCD ---
Author Name Unknown Address [address] [place] [address] [phone] Organization Unknown Address [address] [place] [address] [phone] Care Team Providers Care Muffler Hand Name Role Phone UMER GUDINO, BRANDIE Zamudio Attending Physician [phone] Vital Signs Unknown or Not Available. Allergies Allergy Code Allergy Type Reaction Status No Known Allergies 0 No known allergies Active Procedures Unknown or Not Available. History of Immunizations Unknown or Not Available. Problems Problem Code Start Date Resolved Date Status Sprain of thoracic region 316207127 Active Diabetes 2 01264498 Active Results BASIC METABOLIC PANEL (BMP) - Collect Date/Time: 03/16/2021 08:32 Test Name Code Test Result Test Units Test Ref Rang e GLUCOSE 2345-7 182 mg/dL L=70 H=116 BUN 3094-0 16 mg/dL L=6 H=25 CREATININE 2160-0 0.96 mg/dL L=0.67 H=1.17 SODIUM SERUM 2951-2 139 mmol/L L=136 H=145 POTASSIUM SERUM 2823-3 4.4 mmol/L L=3.4 H=5 .2 CHLORIDE SERUM 2075-0 105 mmol/L L=96 H=110 CARBON DIOXIDE (CO2) 2028-9 27 mmol/L L=22 H=34 ANION GAP 50808-7 6.6 mmol/L CALCIUM SERUM 78363-5 8.7 mg/dL L=8.2 H=10. 2 AGE 50 years eGFR (non-Afr.Amer.) 38892-4 82 mL/min eGFR (Afr-Nicaraguan) 37343-8 100 mL/min HEMOGLOBIN A1C - Collect Jose e/Time: 03/16/2021 08:32 Test Name Code Test Result Test Units Test Ref Rang e Hgb A1c 4548-4 6.8 % L=3.8 H=5.7 MEAN BLOOD GLUCOSE 20087-0 140 mg/dL Active Medications Medication Code Dose Units Frequency Route Modificatio n Start Date/Time Fish Oil 1000MG Oral Capsule, Liquid Filled [id number] 1000 MILLIGRAMS DAILY ORAL 14:22 Prescription Detail TAKE 1000 MILLIGRAMS ORAL DAILY Januvia 100MG Oral Tablet 333880 100 MILLIGRAMS DAILY ORAL 14:22 Prescription Detail TAKE 100 MILLIGRAMS ORAL DAILY Jardiance 10MG Oral Tablet 3529855 10 MILLIGRAMS DAILY ORAL 14:22 Prescription Detail TAKE 10 MILLIGRAMS ORAL DAILY Lisinopril 5MG Oral Tablet 841741 5 MILLIGRAMS DAILY ORAL 14:22 Prescription Detail TAKE 5 MILLIGRAMS ORAL DAILY Multi-Day Oral Tablet 39854877681 1 EACH DAILY ORAL 06/16/20 14:22 Prescription Detail TAKE 1 EACH ORAL DAILY Medications Administered During Visit Unknown or Not Available. Encounters Encounter Diagnosis Diagnosis Code Start Date Type 2 diabetes mellitus without complication 31 [id number] 03/16/2021 Social History Smoking Status Code Start Date End Date Never smoker [id number] Patient Decision Aids Unknown or Not Available. Discharge Instructions You were admitted to [facility] on 03/16/2021 08:24 with a principal diagnosis of Type 2 diabetes mellitus without complications You had the following tests done:BASIC METABOLIC PANEL (BMP)HEMOGLOBIN A1C You were discharged from [facility] on 03/16/2021 08:24 Should you have any questions prior to [...]
--- OUTSIDE RECORDS SUMMARY | 2023-07-10 15:47 | XMS_ITS | CCD ---
Author Name Unknown Address [address] [place] [address] [phone] Organization Unknown Address [address] [place] [address] [phone] Care Team Providers Care Mine Inspector Name Role Phone BRANDIE OWUSU Attending Physician [phone] Vital Signs Unknown or Not Available. Allergies Allergy Code Allergy Type Reaction Status No Known Allergies 0 No known allergies Active Procedures Unknown or Not Available. History of Immunizations Unknown or Not Available. Problems Problem Code Start Date Resolved Date Status Sprain of thoracic region 847780962 Active Diabetes 2 61886633 Active Results COMPREHENSIVE METABOLIC PANE L (CMP) - Collect Date/Time: 08/05/2021 08:27 Test Name Code Test Result Test Units Test Ref Rang e GLUCOSE 2345-7 173 mg/dL L=70 H=116 BUN 3094-0 19 mg/dL L=6 H=25 CREATININE 2160-0 1.01 mg/dL L=0.67 H=1.17 SODIUM SERUM 2951-2 134 mmol/L L=136 H=145 POTASSIUM SERUM 2823-3 4.3 mmol/L L=3.4 H=5 .2 CHLORIDE SERUM 2075-0 98 mmol/L L=96 H=110 CARBON DIOXIDE (CO2) 2028-9 28 mmol/L L=22 H=34 ANION GAP 76524-6 7.6 mmol/L CALCIUM SERUM 05647-8 8.9 mg/dL L=8.2 H=10. 2 BILIRUBIN TOTAL 1975-2 0.9 mg/dL L=0.0 H=1 .3 ALK. PHOS. 6768-6 81 U/L L=46 H=116 SGOT (AST) 1920-8 76 U/L L=15 H=37 SGPT (ALT) 1742-6 104 U/L L=12 H=78 TOTAL PROTEIN 2885-2 8.1 gm/dL L=6.0 H=8.0 ALBUMIN 1751-7 4.4 gm/dL L=3.4 H=5.0 AGE 50 years eGFR (non-Afr.Amer.) 37873-4 78 mL/min eGFR (Afr-Lao) 13235-8 94 mL/min HEMOGLOBIN A1C* - Collect Da te/Time: 08/05/2021 08:27 Test Name Code Test Result Test Units Test Ref Rang e Hgb A1c 4548-4 7.0 % L=3.8 H=5.7 MEAN BLOOD GLUCOSE 31318-3 147 mg/dL LIPID PANEL* - Collect Date/ Time: 08/05/2021 08:27 Test Name Code Test Result Test Units Test Ref Rang e CHOLESTEROL 2093-3 276 mg/dL L=0 H=200 TRIGLYCERIDES 2571-8 99 mg/dL L=63 H=313 HDL 2085-9 59 mg/dL L=28 H=63 non-HDL-C 50167-7 217 mg/dL L=0 H=160 LDL (CALC) 40656-1 197 mg/dL L=0 H=130 % HDL 21.4 % Chol/HDL Ratio 9830-1 4.7 L=0.0 H=4. 9 CHD Relative Risk 0.9 x Avg L=0.0 H =1.0 LDL/HDL Ratio 85352-1 3.3 L=0.0 H=3.5 CHD Relative Risk. 0.9 x Avg L=0.0 H=1.0 FASTING STATUS: FASTING N/A CBC W/ DIFFERENTIAL* - Colle ct Date/Time: 08/05/2021 08:27 Test Name Code Test Result Test Units Test Ref Rang e WBC 6690-2 5.12 th/cmm L=5.00 H=10.00 NEUT % 64.8 % L=40.0 H=80.0 LYMPH % 23.0 % L=10.0 H=50.0 MONO % 37239-8 9.0 % L=2.0 H=12.0 EOS % 2.0 % L=0.0 H=8.0 BASO % 1.0 % L=0.0 H=3.0 IG % 2514-8 0.2 % L=0.0 H=1.1 NRBC % 45315-6 0.0 % L=0.0 H=0.0 NEUT abs count 751-8 3.3 th/cmm L=1.6 H=8. 4 LYMPH abs count 731-0 1.2 th/cmm L=1.5 H=4 .0 MONO abs count 742-7 0.5 th/cmm L=0.2 H=1. 0 EOS abs count 711-2 0.1 th/cmm L=0.0 H=0.5 BASO abs count 704-7 0.1 th/cmm L=0.0 H=0. 2 IG abs count 09130-2 0.0 th/cmm L=0.0 H=0.1 NRBC abs count 90015-0 0.0 mil/cmm L=0.0 H=0. 0 RBC 789-8 5.07 mil/cmm L=4.30 H=6.20 HEMOGLOBIN 718-7 15.1 gm/dL L=13.0 H=17.0 HEMATOCRIT 4544-3 46 % L=45 H=52 MCV 787-2 91 fL L=82 H=92 MCH 785-6 29.8 pg L=27.0 H=31.0 MCHC 786-4 32.8 % L=32.0 H=36.0 RDW-SD 788-0 42.4 fL L=39.0 H=49.0 PLATELET COUNT 777-3 213 th/cmm L=150 H=45 0 Active Medications Medication Code Dose Units Frequency Route Modificatio n Start Date/Time Fish Oil 1000MG Oral Capsule, Liquid Filled [id number] 1000 MILLIGRAMS DAILY ORAL 14:22 Prescription Detail TAKE 1000 MILLIGRAMS ORAL DAILY Januvia 100MG Oral Tablet 467790 100 MILLIGRAMS DAILY ORAL 022 14:22 Prescription Detail TAKE 100 MILLIGRAMS ORAL DAILY Jardiance 10MG Oral Tablet 4230806 10 MILLIGRAMS DAILY ORAL 14:22 Prescription Detail TAKE 10 MILLIGRAMS ORAL DAILY Lisinopril 5MG Oral Tablet 514140 5 MILLIGRAMS DAILY ORAL 14:22 Prescription Detail TAKE 5 MILLIGRAMS ORAL DAILY Multi-Day Oral Tablet 56156506091 1 EACH DAILY ORAL 11/18/20 22 14:22 Prescription Detail TAKE 1 EACH ORAL DAILY Medications Administered During Visit Unknown or Not Available. Encounters Encounter Diagnosis Diagnosis Code Start Date Chronic cough [id number] 08/05/2021 Social History Smoking Status Code Start Date End Date Never smoker [id number] Patient Decision Aids Unknown or Not Available. Discharge Instructions You were admitted to [facility] on 08/05/2021 08:07 with a principal diagnosis of Chronic cough You had the following tests done:CBC W/ DIFFERENTIAL*COMPREHENSIVE METABOLIC PANEL (CMP)HEMOGLOBIN A1C*LIPID PANEL* You were discharged from [facility] on 08/05/2021 08:07 Should you have any questions prior to discharge, please contact a member of your healthcare team. If you have left the hospital and have any questions, please contact your primary care physician. Chief Complaint and Reason For Visit Chief Complaint Date of Onset CHRONIC COUGH, SOB Function Status Unknown or Not Available. Plan of Care Unknown or Not Available. Referral/Transition of Care Unknown or Not Available.
[2023-07-10 21:08] LABS: ALT 54 U/L (16-63); AST 33 U/L (15-37); Albumin 4.5 g/dL (3.4-5.0); Alkaline Phosphatase 77 U/L (46-116); Anion Gap 9.4 mmol/L (3-11); BUN 20 mg/dL (7-18); Bilirubin, Total 0.7 mg/dL (0.2-1.0); CO2 28.6 mmol/L (21.0-32.0); CREATININE 1.3 mg/dL (0.70-1.30); Calcium 9.6 mg/dL (8.5-10.1); Chloride 102 mmol/L (98-107); Estimated GFR 65.28 (mL/min/1.73m2); Glucose 205 mg/dL (74-106); Potassium 4.3 mmol/L (3.5-5.1); Sodium 140 mmol/L (136-145)
== END 2023-07-10 15:42 | disposition home or self-care (01) ==
LOC: NCHCN 15:41
PROVIDERS: PCP Family Medicine; Visit Provider Family Medicine
DX: E78.5 Hyperlipidemia, unspecified (principal)
CPT/HCPCS: 80053

== ENCOUNTER 2023-10-18 14:22 | Outpatient (REF) | payer BC, SELFPAY ==
[2023-10-18 21:59] LABS: COMMENT (LAB VIEW ONLY) 56.37 mg/dL
[2023-10-18 22:02] LABS: Hemoglobin A1C 7.2 % (<5.7)
== END 2023-10-18 14:23 | disposition home or self-care (01) ==
LOC: NCHCN 14:22
PROVIDERS: PCP Family Medicine; Visit Provider Family Medicine
DX: E11.9 Type 2 diabetes mellitus without complications (principal)
CPT/HCPCS: 82043; 82570; 83036

== ENCOUNTER 2024-01-18 22:30 | Outpatient (REF) | payer BC, SELFPAY ==
[2024-01-18 14:54] LABS: ALT 45 U/L (16-63); AST 21 U/L (15-37); Albumin 4.3 g/dL (3.4-5.0); Alkaline Phosphatase 79 U/L (46-116); Anion Gap 8.2 mmol/L (3-11); BUN 24 mg/dL (7-18); Bilirubin, Total 0.88 mg/dL (0.2-1.0); CO2 28.8 mmol/L (21.0-32.0); CREATININE 0.9 mg/dL (0.70-1.30); Calcium 9.1 mg/dL (8.5-10.1); Calculated LDL 122 mg/dL (<100); Chloride 102 mmol/L (98-107); Cholesterol 216 mg/dL (<200); Estimated GFR 100.86 (mL/min/1.73m2); Glucose 156 mg/dL (74-106); HDL Cholesterol 60 mg/dL (40-60); Potassium 4.7 mmol/L (3.5-5.1); Sodium 139 mmol/L (136-145); Total Protein 7.6 g/dL (6.4-8.2); Triglyceride 172 mg/dL (<150)
== END 2024-01-18 22:31 | disposition home or self-care (01) ==
LOC: NCHCN 22:30
PROVIDERS: PCP Family Medicine; Visit Provider Family Medicine
DX: E78.5 Hyperlipidemia, unspecified (principal)
CPT/HCPCS: 80053; 80061

== ENCOUNTER 2024-07-28 17:47 | Outpatient (REF) | payer BC, SELFPAY ==
[2024-07-28 15:15] LABS: HCT 48.8 % (40.0-50.0); MCH 29.6 pg (27.0-33.0); MCHC 32.8 % (32.0-36.0); MCV 90 fL (80-95); MPV 10.6 fL (8.0-11.0); Platelet Count 217 10^3/uL (130-400); RDW 13.3 % (11.8-14.1); RDW-SD 44.4 fL
[2024-07-28 15:34] LABS: ALT 46 U/L (16-63); AST 28 U/L (15-37); Albumin 4.5 g/dL (3.4-5.0); Alkaline Phosphatase 89 U/L (46-116); Anion Gap 12.4 mmol/L (3-11); BUN 25 mg/dL (7-18); CO2 25.6 mmol/L (21.0-32.0); CREATININE 1.1 mg/dL (0.70-1.30); Calcium 9.8 mg/dL (8.5-10.1); Calculated LDL 118 mg/dL (<100); Chloride 105 mmol/L (98-107); Cholesterol 236 mg/dL (<200); Estimated GFR 79.28 (mL/min/1.73m2); Glucose 141 mg/dL (74-106); HDL Cholesterol 68 mg/dL (40-60); Potassium 4.2 mmol/L (3.5-5.1); Sodium 143 mmol/L (136-145); Total Protein 8.3 g/dL (6.4-8.2); Triglyceride 252 mg/dL (<150)
== END 2024-07-28 17:48 | disposition home or self-care (01) ==
LOC: NCHCN 17:47
PROVIDERS: PCP Family Medicine; Visit Provider Family Medicine
DX: E78.5 Hyperlipidemia, unspecified (principal); R42 Dizziness and giddiness
CPT/HCPCS: 80053; 80061; 85027

== ENCOUNTER 2024-10-29 15:25 | Outpatient (REF) | payer BC, SELFPAY ==
[2024-10-29 16:36] LABS: Calculated LDL 86 mg/dL (<100); Cholesterol 182 mg/dL (<200); HDL Cholesterol 70 mg/dL (>or=40); Triglyceride 133 mg/dL (<150)
[2024-10-29 16:37] LABS: COMMENT (LAB VIEW ONLY) 66.11 mg/dL; Microalb ug/mg Crea 46.9 ug/mg Cr
== END 2024-10-29 15:26 | disposition home or self-care (01) ==
LOC: NCHCN 15:25
PROVIDERS: PCP Family Medicine; Visit Provider Family Medicine
DX: E78.5 Hyperlipidemia, unspecified (principal); E11.9 Type 2 diabetes mellitus without complications
CPT/HCPCS: 80061; 82043; 82570; 83036

== ENCOUNTER 2025-04-27 16:40 | Outpatient (REF) | payer BC, SELFPAY ==
[2025-04-27 16:37] LABS: Abs Immature Grans 0.02 10^3/uL (0.0-0.06); HCT 46.7 % (40.0-50.0); HGB 15.5 g/dL (13.5-17.5); Immature Grans % 0.3 %; MCH 29.5 pg (27.0-33.0); MCHC 33.2 % (32.0-36.0); MCV 89 fL (80-95); MPV 11.0 fL (8.0-11.0); Platelet Count 182 10^3/uL (130-400); RBC 5.25 10^6/uL (4.36-5.78); RDW 13.1 % (11.8-14.1); RDW-SD 42.6 fL; WBC 6.77 10^3/uL (4.4-10.8)
[2025-04-27 16:52] LABS: ALT 61 U/L (16-63); AST 30 U/L (15-37); Albumin 4.9 g/dL (3.4-5.0); Alkaline Phosphatase 91 U/L (46-116); Anion Gap 10.3 mmol/L (3-11); BUN 22 mg/dL (7-18); Bilirubin, Total 1.0 mg/dL (0.2-1.0); CO2 29.7 mmol/L (21.0-32.0); Calcium 9.8 mg/dL (8.5-10.1); Chloride 101 mmol/L (98-107); Estimated GFR 100.24 (mL/min/1.73m2); Glucose 141 mg/dL (74-106); Potassium 4.3 mmol/L (3.5-5.1); Sodium 141 mmol/L (136-145); Total Protein 8.4 g/dL (6.4-8.2)
== END 2025-04-27 16:41 | disposition home or self-care (01) ==
LOC: NCHCN 16:40
PROVIDERS: PCP Family Medicine; Visit Provider Family Medicine
DX: E11.9 Type 2 diabetes mellitus without complications (principal); E66.811 Obesity, class 1; Z68.31 Body mass index [BMI] 31.0-31.9, adult
CPT/HCPCS: 80053; 85025